=== PATIENT | female | born 1985 | race Caucasian/White ===

== ENCOUNTER → 2019-07-20 11:55 | Outpatient (CLI) | payer OTHER, SELFPAY ==
--- NOTE | ~2019-07-20 | XR_ITS ---
XR chest 2V DATE: 07/20/2019 13:16 INDICATION: Acute lower respiratory infection TECHNIQUE: PA and lateral views COMPARISON: None FINDINGS: Normal heart size. No hilar or mediastinal enlargement. No pulmonary infiltrate or consolid ation, pleural effusion or pulmonary vascular congestion or pneumothorax. IMPRESSION: No active cardiopulmonary disease Reviewed, dictated and finalized at location A.
== END ==
PROVIDERS: PCP Family Medicine; Visit Provider Physician Assistant
DX: J22 Unspecified acute lower respiratory infection (principal)
CPT/HCPCS: 71046

== ENCOUNTER → 2020-06-25 11:22 | Outpatient (CLI) | payer OTHER, SELFPAY ==
--- NOTE | ~2020-06-25 | XR_ITS ---
XR_CERV2-3V_CR DATE: 06/25/2020 11:50 INDICATION: Neck pain. Seropositive rheumatoid arthritis. TECHNIQUE: AP, open-mouth, lateral views COMPARISON: None FINDINGS: There is mild reversal of cervical curvature. There is moderate loss of interspace height at C5-6. C1 and C2 are normally aligned and the odontoid process is intact. No fracture or dislocation or lock ed facet or prevertebral soft tissue swelling. IMPRESSION: Moderate loss of interspace height at C5-6 Mild reversal of cervical curvature Reviewed, dictated and finalized at Location A. Reviewed, dictated and finalized at location B. 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
--- NOTE | ~2020-06-25 | XR_ITS ---
XR shoulder LT min 2V DATE: 06/25/2020 11:50 INDICATION: Left shoulder pain. Seropositive rheumatoid arthritis. TECHNIQUE: 4 views COMPARISON: None FINDINGS: No fracture or dislocation, periosteal reaction or bone destruction. Normal alignment at th e acromioclavicular and glenohumeral joints. No abnormal left shoulder soft tissue calcification. IMPRESSION: Negative left shoulder Reviewed, dictated and finalized at location B. 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
== END ==
DX: M54.2 Cervicalgia (principal); M25.512 Pain in left shoulder; M05.9 Rheumatoid arthritis with rheumatoid factor, unspecified
CPT/HCPCS: 72040; 73030

== ENCOUNTER 2020-11-08 13:03 | Observation (INO) | payer OTHER, SELFPAY ==
--- NOTE | ~2020-11-08 | US_ITS ---
EXAMINATION: US OB BPP wo non-stress DATE: 11/08/2020 14:29 INDICATION: Placental assessment after fall during third trimester TECHNIQUE: Real-time pelvic ultrasound was performed. The interpreting radiologist was not present fo r the study. COMPARISON: None. FINDINGS: There is a single living fetus in vertex presentation. The placenta is anterior and appears normal. F etal heart rate is 142 beats per minute (bpm). Biophysical profile performed by the technologist: breathing (30 sec sustained breathing in 30 minutes): 2 out of 2 movement (3 gross body movements in 30 minutes): 2 out of 2 tone (one episode of raxufmu-oibqiwdsl-zmlglzm limb movement): 2 out of 2 Amniotic fluid pocket (2 cm): 2 out of 2 Total score: 8 out of 8 IMPRESSION: 1. Single living fetus in vertex presentation. 2. Biophysical profile 8 out of 8. 3. Grossly normal placenta without evidence of abruption. However, acute hemorrhage can be isoechoic to the placenta. Recommend continued clinical followup. Reviewed, dictated and finalized at location B. IMPRESSION: 1. Single living fetus in vertex presentation. 2. Biophysical profile 8 out of 8. 3. Grossly normal placenta without evidence of abruption. However, acute hemor rhage can be isoechoic to the placenta. Recommend continued clinical followup.
[2020-11-08 13:33] VITALS: BP 124/73; PULSE 118
[2020-11-08 13:34] VITALS: TEMP 36.6
[2020-11-08 13:36] VITALS: BMI 28.5
--- NOTE | 2020-11-08 13:41 | OBADM ---
This patient, Lila Morel, admitted to the OB room 117 at 1303 for observation after having fallen in the shower this morning. Patient/family oriented to hospital policies and general routines including ID bracelet, bed and alarms, visiting hours, pain management, procedures, bathroom and other care routines, personal items, smoking policy, room service/diet, and visiting hours. Patient/Family are encouraged to report perceived risks to care and to ask questions if they do not understand what they are told or what they should do.
[2020-11-08 14:00] VITALS: BP 137/73; PULSE 112
[2020-11-08 15:00] VITALS: BP 121/65; PULSE 101
[2020-11-08] MEDS: ACETAMINOPHEN 500 MG TABLET 1000 MG PO (15:35)
--- NOTE | 2020-11-08 18:45 | PM.OBTRLD ---
OB - Triage/Final Diagnosis Visit Information Comments/Additional reasons for admission: I have assessed the risk for this patient, Lila Morel, and determined that she would benefit from observation care. Evaluation Vital signs: Vital Signs - 24 hr 11/08/20 13:33 11/08/20 14:00 11/08/20 15:00 Pulse Rate 118 H 112 H 101 H Blood Pressure 124/73 137/73 121/65 Final Diagnosis (1) Fall: Code(s): W19.XXXA - Unspecified fall, initial encounter Status: Acute
== END 2020-11-08 15:54 | disposition home or self-care (01) ==
PROVIDERS: Admitting Provider Obstetrics & Gynecology; Visit Provider Obstetrics & Gynecology
DX: O26.899 Other specified pregnancy related conditions, unspecified trimester (principal); W19.XXXA Unspecified fall, initial encounter; Z3A.00 Weeks of gestation of pregnancy not specified
CPT/HCPCS: 76819; A9270; G0378; G0379

== ENCOUNTER 2020-11-17 14:52 | Outpatient (CLI) | payer OTHER, SELFPAY ==
[2020-11-17 15:15] VITALS: BP 118/66; PULSE 106
[2020-11-17 15:23] VITALS: BP 118/66
[2020-11-17 15:30] VITALS: BP 118/66
--- NOTE | 2020-11-17 15:35 | PC.NURSE ---
1520-Dr.Dalla Barnes called, informed pt came in after calling and asking if she can come in to get her bp checked. BP is 118/66. Pt states she was at [employer] and got hot and a little dizzy. Pt states she started getting a slight headache less than 30 minutes ago and has not taken anything for it yet. Orders received to discharge pt home and instruct to take tylenol for OSCAR. FHR is reassuring for 29 weeks gestation.
== END 2020-11-17 15:30 | disposition home or self-care (01) ==
LOC: ANHOBOP 14:59 → ANHLDR 14:59
PROVIDERS: Visit Provider Obstetrics & Gynecology
DX: O13.9 Gestational [pregnancy-induced] hypertension without significant proteinuria, unspecified trimester (principal); Z3A.00 Weeks of gestation of pregnancy not specified
CPT/HCPCS: 59025; 99199

== ENCOUNTER 2020-12-23 09:55 | Observation (INO) | payer OTHER, SELFPAY ==
[2020-12-23] VITALS (9 sets, daily range): BP systolic 125–147; BP diastolic 62–83; PULSE 69–115
[2020-12-23] MEDS: TERBUTALINE SULFATE 1 MG/ML VIAL 0.25 MG SUB-Q (11:39)
[2020-12-23] MEDS: ONDANSETRON HCL ODT 4 MG TABLET PO (11:55)
[2020-12-23 12:03] LABS: Alanine Aminotransferase 15 U/L (4-35); Alkaline Phosphatase 171 U/L (38-126); Anion Gap 6 mmol/L (8-16); Aspartate Amino Transferase 28 U/L (14-36); Bilirubin,Total 0.2 mg/dL (0.2-1.3); Blood Urea Nitrogen 7 mg/dL (7-17); Calcium 8.9 mg/dL (8.4-10.2); Carbon Dioxide 22 mmol/L (22-30); Chloride 106 mmol/L (98-107); Estimated Glomerular Filt Rate > 60; Glucose 115 mg/dL (65-110); Sodium 134 mmol/L (137-145); Uric Acid 6.3 mg/dL (2.5-7.5)
[2020-12-23 12:11] LABS: Basophils Percent Auto 0.3 % (0.2-1.2); Eosinophils Percent Auto 0.4 % (0-4.4); Hematocrit 34.5 % (37.0-47.0); Hemoglobin 11.6 g/dL (12.0-15.0); Immature Granulocyte Absolute 0.07 K/mm3 (0.00-0.031); Immature Granulocyte Percent A 0.7 % (0-0.5); Lymphocytes Absolute Auto 1.02 K/mm3 (0.9-3.2); Mean Corpuscular HGB Conc 33.6 g/dl (32-36); Mean Corpuscular Hemoglobin 29.1 pg (26-34); Mean Corpuscular Volume 86.7 fl (80-100); Mean Platelet Volume 10.5 fl (7.4-10.4); Monocytes Absolute Auto 0.3 K/mm3 (0.1-0.6); Neutrophils Absolute Auto 8.8 K/mm3 (1.3-6.7); Neutrophils Percent Auto 85.6 % (45.5-73.1); Platelet Count Result 239 k/mm3 (150-375); Red Blood Count 3.98 M/mm3 (4.2-5.4); Red Cell Distribution Width 12.5 % (11.5-14.5); White Blood Count 10.3 K/mm3 (4.5-10.0)
[2020-12-23 12:19] LABS: Creatinine Urine 146.8 mg/dL; Total Protein Urine Random 19 mg/dL; Ur Ttl Prot Creatinine Ratio 0.13 mg/mg (0-0.20)
[2020-12-23 12:40] LABS: Add Urine Microscopic? YES; Appearance Urine Cloudy (Clear); Bilirubin Urine Negative (Negative); Blood Urine Negative (Negative); Color Urine Amber (Yellow); Glucose Urine UA Negative (Negative); Ketones Urine Negative (Negative); Leukocyte Esterase Ur Negative LEU/UL (Negative); Mucus Urine Rare /lpf; Nitrate Urine Negative (Negative); Protein Urine 1+ mg/dL (Negative); RBC Urine 0-2 /hpf (0-2); Squamous Epithelial Cell Urine Many /hpf (Few); WBC Urine 0-3 /hpf
[2020-12-23 12:42] LABS: Specific Grav Ur 1.033 (1.001-1.035)
[2020-12-23] MEDS: LACTATED RINGERS 1,000 ML 999 ML IV CONT (13:03)
--- NOTE | 2020-12-23 13:42 | PC.NURSE ---
Pt dozing in the room, did not wake when RN entered room. Has been tolerating water and asked for crackers. Pt previously stated she was still nauseated but at least able to keep the water down.
--- NOTE | 2020-12-26 07:31 | PM.OBTRLD ---
OB - Triage/Final Diagnosis Visit Information Date of evaluation: 12/23/20 Reason for evaluation: decreased movement Comments/Additional reasons for admission: I have assessed the risk for this patient, Lila Morel, and determined that she would benefit from observation care. Evaluation Laboratory results: Laboratory Tests 12/23/20 12/23/20 12/23/20 11:40 11:40 11:40 WBC 10.3 H RBC 3.98 L Hgb 11.6 L Hct 34.5 L MCV 86.7 MCH 29.1 MCHC 33.6 RDW 12.5 Plt Count 239 MPV 10.5 H Immature Gran % (Auto) 0.7 H Neut % (Auto) 85.6 H Lymph % (Auto) 10.0 L [place] % (Auto) 3.0 Eos % (Auto) 0.4 Baso % (Auto) 0.3 Lymph # (Auto) 1.02 [place] # (Auto) 0.3 Eos # (Auto) 0.0 Baso # (Auto) 0.0 Abs Immat Gran (auto) 0.07 H Absolute Neuts (auto) 8.8 H Absolute Nucleated RBC 0.0 Nucleated RBC % 0.0 Sodium 134 L Potassium 4.0 Chloride 106 Carbon Dioxide 22 Anion Gap 6 L BUN 7 Creatinine 0.50 L Estim Creat Clear Calc Not Reportable Estimated GFR > 60 Glucose 115 H Uric Acid 6.3 Calcium 8.9 Total Bilirubin 0.2 AST 28 ALT 15 Alkaline Phosphatase 171 H Total Protein 7.0 Albumin 4.0 Urine Color [place] Urine Appearance Cloudy H Urine pH 5.0 Ur Specific [place] 1.033 Urine Protein 1+ H Urine Glucose (UA) Negative Urine Ketones Negative Ur Blood (Man) Negative Urine Nitrate Negative Urine Bilirubin Negative Urine Urobilinogen 2.0 H Leukocyte Esterase Rfl Negative Urine RBC 0-2 Urine WBC 0-3 Ur Squamous Epith Cells Many H Urine Mucus Rare U Random Total Protein Urine Creatinine Protein/Creat Ratio 2 12/23/20 11:56 WBC RBC Hgb Hct MCV MCH MCHC RDW Plt Count MPV Immature Gran % (Auto) Neut % (Auto) Lymph % (Auto) [place] % (Auto) Eos % (Auto) Baso % (Auto) Lymph # (Auto) [place] # (Auto) Eos # (Auto) Baso # (Auto) Abs Immat Gran (auto) Absolute Neuts (auto) Absolute Nucleated RBC Nucleated RBC % Sodium Potassium Chloride Carbon Dioxide Anion Gap BUN Creatinine Estim Creat Clear Calc Estimated GFR Glucose Uric Acid Calcium Total Bilirubin AST ALT Alkaline Phosphatase Total Protein Albumin Urine Color Urine Appearance Urine pH Ur Specific [place] Urine Protein Urine Glucose (UA) Urine Ketones Ur Blood (Man) Urine Nitrate Urine Bilirubin Urine Urobilinogen Leukocyte Esterase Rfl Urine RBC Urine WBC Ur Squamous Epith Cells Urine Mucus U Random Total Protein 19 Urine Creatinine 146.8 Protein/Creat Ratio 2 0.13
== END 2020-12-23 14:10 | disposition home or self-care (01) ==
PROVIDERS: Admitting Provider Student in an Organized Health Care Education/Training Program; Visit Provider Student in an Organized Health Care Education/Training Program
DX: O36.8190 Decreased fetal movements, unspecified trimester, not applicable or unspecified (principal); Z3A.00 Weeks of gestation of pregnancy not specified
CPT/HCPCS: 36415; 80053; 81001; 82570; 84156; 84550; 85025; 96372; A9270; G0378; G0379; J3105; J7120

== ENCOUNTER 2021-01-23 16:21 | Outpatient (CLI) | payer OTHER, SELFPAY ==
[2021-01-23 16:54] LABS: Mean Corpuscular HGB Conc 32.4 g/dl (32-36); Mean Corpuscular Hemoglobin 28.1 pg (26-34); Mean Corpuscular Volume 86.7 fl (80-100); Mean Platelet Volume 11.2 fl (7.4-10.4); Platelet Count Result 239 k/mm3 (150-375); Red Blood Count 3.92 M/mm3 (4.2-5.4); Red Cell Distribution Width 12.9 % (11.5-14.5); White Blood Count 12.2 K/mm3 (4.5-10.0)
[2021-01-25 08:52] LABS: Rapid Plasma Reagin Non-Reactive (NonReactive)
== END 2021-01-23 16:22 | disposition home or self-care (01) ==
LOC: ANHLAB 16:27
PROVIDERS: Visit Provider Obstetrics & Gynecology
DX: Z34.93 Encounter for supervision of normal pregnancy, unspecified, third trimester (principal); Z3A.00 Weeks of gestation of pregnancy not specified
CPT/HCPCS: 36415; 85027; 86592; 86850; 86900; 86901

== ENCOUNTER 2021-01-24 10:25 | Inpatient (IN) | payer OTHER, SELFPAY ==
--- NOTE | 2020-12-31 16:12 | PC.NURSE ---
VERIFIED WITH OR SCHEDULE AND PATIENT--C/S WITH TUBAL LIGATION ON 01/24/21 AT 1200 PATIENT GIVEN REQUISITION FOR LAB DRAW ON 01/23/21
[2021-01-23 14:15] VITALS: BP 118/76; PULSE 70; RESP 18; O2SAT 100
[2021-01-24] VITALS (40 sets, daily range): BP systolic 109–146; BP diastolic 62–94; PULSE 65–92; RESP 16–20; TEMP 36.2–36.8; O2SAT 96–100; BMI 30.1
--- NOTE | 2021-01-24 10:25 | LDADM ---
This patient, Lila Morel, was admitted to Labor/Delivery/Recovery 119 on 01/24/21 at 10:25. Plans for labor, pain management and were discussed with patient. Patient/family oriented to hospital policies and general routines including ID bracelet, bed and alarms, visiting hours, pain management, procedures, bathroom and other care routines, personal items, smoking policy, room service/diet and guest tray routines, security routines, and visiting hours. Patient/Family are encouraged to report perceived risks to care and to ask questions if they do not understand what they are told or what they should do. See OBIX for further documentation.
--- NOTE | 2021-01-24 10:51 | WPDANESEPPF ---
Anes - Initial Pre Proc Eval Procedure: Operation Date: 01/24/21 12:00 Proposed Procedures p Repeat Section with Bilateral Tubal Sterilization - Demond Bui MD Date/Time: 01/24/21 10:51 Surgeon: Demond Bui MD Pre Op Diagnosis: c section Patient Data Age: 35 Gender: F Height: Weight: Last Vital Signs Pulse 89 01/24/21 10:47 BP 140/94 H 01/24/21 10:47 Allergies Allergy/AdvReac Type Severity Reaction Status Date / Time No Known Allergies Allergy Unknown Verified 04/11/19 08:26 Home Medications Medication Instructions Recorded Confirmed Type prenat.vits,donna,dfw-ddan-qzoan 1 tablet PO DAILY 04/11/19 11/08/20 History acetaminophen 1,500 mg PO USEASDIRECTD 11/08/20 11/08/20 History diphenhydramine HCl [Benadryl] 50 mg PO HS 11/08/20 11/08/20 History famotidine [Zantac-360 20 mg USEASDIRECTD 12/31/20 12/31/20 History (famotidine)] omeprazole 20 mg PO DAILY 12/31/20 12/31/20 History ondansetron HCl 4 mg PO Q6H PRN 12/31/20 12/31/20 History Patient hx anesthesia problems: none Family hx anesthesia problems: none PMFSH Past Medical History Medical History (Updated 01/24/21 @ 10:52 by Woody Linda DO) Anxiety Post depression Rheumatoid arthritis Surgical History Surgical History (Updated 04/11/19 @ 09:18 by Srini Jones MD) History of 2016 and 2017 History of tonsillectomy and adenoidectomy History of wisdom tooth extraction 2017 Family History Family History (Updated 12/31/20 @ 16:03 by Jayro Vaca RN) Mother Depression Hypertension Sibling Depression Father Family history of lung cancer Depression Grandparent Family history of coronary artery disease Family history of malignant neoplasm of brain Family history of cardiovascular disease Social History Social History Smoking status: Never smoker Second hand tobacco smoke exposure: No Alcohol intake: current Substance use: never Spiritual care concerns: No Anes - Eval Final PreProcedure Day of Procedure 01/24/21 10:51 Patient weight: overweight Heart: regular rate and rhythm Lungs: clear to auscultation and normal air movement Airway: Mallampati scale class II Neurological: alert and oriented Last oral intake: >/= 8 hours ASA classification: II Emergent: no Anesthetic plan: proceed Anesthesia type and monitoring: regional spinal and standard monitoring Informed Consent: The patient's anesthetic plan and its attendant risks and benefits were discussed with the patient/family/POA. Questions were solicited and answers provided to the satisfaction of the patient/family/POA.
[2021-01-24] MEDS: LACTATED RINGERS 1,000 ML 999 ML IV CONT ×2 (11:02→12:08)
--- NOTE | 2021-01-24 11:59 | PM.IMHP ---
H&P: HPI History of Present Illness Date/Time: 01/24/21 11:59 35 y/o at 39 1/7 weeks here for repeat . Prior x 3. Desires permanent contraception with tubal ligation. Chief Complaint: Here for c section Review of Systems Review of Systems: All systems reviewed & are unremarkable except as noted in HPI and below PMFSH Past Medical History Medical History Anxiety Post depression Rheumatoid arthritis Surgical History Surgical History History of 2017 and 2018 History of tonsillectomy and adenoidectomy History of wisdom tooth extraction 2017 Family History Family History Mother Depression Hypertension Sibling Depression Father Family history of lung cancer Depression Grandparent Family history of coronary artery disease Family history of malignant neoplasm of brain Family history of cardiovascular disease Social History Social History Smoking status: Never smoker Second hand tobacco smoke exposure: No Alcohol intake: current Substance use: never Spiritual care concerns: No Meds Home Medications and Allergies Home Medications Medication Instructions Recorded Confirmed Type prenat.vits,donna,njj-mnlm-mgvwm 1 tablet PO DAILY 04/11/19 01/24/21 History acetaminophen 1,500 mg PO USEASDIRECTD 11/08/20 01/24/21 History diphenhydramine HCl [Benadryl] 50 mg PO HS 11/08/20 01/24/21 History famotidine [Zantac-360 20 mg USEASDIRECTD 12/31/20 01/24/21 History (famotidine)] omeprazole 20 mg PO DAILY 12/31/20 01/24/21 History ondansetron HCl 4 mg PO Q6H PRN 12/31/20 01/24/21 History Allergies Allergy/AdvReac Type Severity Reaction Status Date / Time No Known Allergies Allergy Unknown Verified 04/11/19 08:26 Vital Signs Vital Signs - 24 hr 01/24/21 10:47 Temperature 36.8 C Pulse Rate 89 Respiratory Rate 20 Blood Pressure 140/94 H Exam Const: Orientation/consciousness: patient oriented x3 Other: Well-developed, well-nourished female in no acute distress. Neck: Thyroid: thyroid normal Lymphatic: no lymphadenopathy noted (in neck, axilla or inguinal nodes) Resp: Effort & Inspection: normal respiratory effort Auscultation: clear to auscultation bilaterally Cardio: Rate: regular rate Rhythm: regular rhythm Heart sounds: S1 normal heart sound present and S2 normal heart sound present GI: Other: ABD: Soft, nontender, nondistended, gravid. Vertex. NST reactive. TOCO: no contractions. FH 38 cm. : General: Yes no CVA tenderness Other: Cervix closed / 50 Back/Spine/Pelvis: Back: no CVA tenderness Skin: General skin exam: normal color and no rashes or lesions noted Neuro: General: patient oriented x3 Extrem: Other: Extremities: nontender with no edema Psych: Mental Status: mental status grossly normal Affect: normal affect Assessment and Plan Assessment and plan (1) History of 3 sections: Code(s): Z98.891 - History of uterine scar from previous surgery Status: Acute Assessment and Plan: A: IUP at 39 1/7 weeks with prior cesareans x 3, desiring repeat. Desires permanent contraception. She understands there are temporary methods of contraception available to her. She understands that there are nonsurgical options as well as surgical options. She understands that tubal ligation will render her permanently sterile. She understands that there is a failure rate associated with tubal ligation, as well as an inherent ectopic gestation risk. Furthermore, she understands risks of surgery to include risks of anesthesia, risks of pain, infection, bleeding, blood products, thromboembolic phenomena and damage to adjacent structures such as bowel, bladder, ureters, blood vessels and nerves.
--- NOTE | 2021-01-24 12:00 | WPDHPUPDATE1 ---
History and Physical Update Update Date/Time: 01/24/21 12:00 History and Physical has been reviewed, including an updated exam of the patient. There are NO changes in the patient's condition. Risks, benefits, and alternatives have been discussed and questions answered. Patient agrees to proceed with procedure.
[2021-01-24] MEDS: ceFAZolin 2 GM/D5W 50 ML 2 GM/50 ML BAG IVPB (12:13)
--- NOTE | 2021-01-24 13:24 | PM.OBPRVD ---
OB - Delivery Note Procedure Delivery date: 01/24/21 Procedure: Procedures Operation Date: 01/24/21 12:00 <No data on this case meets the specified criteria> Repeat low transverse delivery Bilateral tubal ligation via modified [place] technique Delivery monitor: external FHT and external uterine Route of delivery: (LTCS) Specimen: Yes (cord blood, segments of bilateral Fallopian tubes) Quantitative Blood Loss (ml): 705 Anesthesia type: Spinal Disposition: PACU Complications: None Narrative: The patient was taken to the operating room where she was prepared and draped in the usual sterile fashion in dorsal supine position with a leftward tilt. She received cefazolin preoperatively. Spinal anesthesia was found to be adequate. A Pfannenstiel skin incision was made along the previous scar line and was carried through to the underlying layer of the fascia. The fascia was incised in the midline and the incision was extended laterally. The fascia was dissected free of the underlying rectus muscles. The rectus muscles were in the midline. The peritoneum was identified, tented up and entered sharply. The peritoneal incision was extended superiorly and inferiorly with good visualization of the bladder. The bladder blade was placed. The vesicouterine peritoneum was identified, tented up and entered sharply. The incision was extended laterally and the bladder flap was developed. The bladder blade was replaced. The uterus was then incised sharply in a transverse fashion along the lower uterine segment. The incision was extended laterally. The infant's head was delivered atraumatically to the sterile field, followed by the body. The nose and mouth were bulb suctioned. After a delay, the cord was clamped and cut. The was handed off the field. Cord blood was collected. The placenta was removed manually and was passed off the field. The uterus was exteriorized and cleared of all clots and debris. The uterine incision was reapproximated using 0 Monocryl in a running, locked fashion. A second, imbricating layer of the same suture was run. Excellent hemostasis resulted as did excellent reapproximation of the normal anatomy. The left fallopian tube was then identified by following it out to the fimbriated end. It was grasped in the midportion with a [place] clamp and a loop of tube was ligated with a free tie of 0 plain gut. The tubal segment was then transected and the specimen was passed off to be sent to pathology. Hemostasis was excellent. Attention was turned to the right fallopian tube which was similarly identified, ligated and transected. Once again, excellent hemostasis resulted. The uterus was returned the abdomen. The pelvis was irrigated copiously with warmed normal saline. Rigorous hemostasis was assured. The fascial layer was reapproximated using 0 Vicryl in a running fashion. The skin was closed with a running, subcuticular stitch of 4 0 Vicryl. Dermaflex was applied externally. Sponge, lap, needle and instrument counts were correct. The patient was taken to the recovery room in stable condition. The went to the nursery in stable condition. I was present and scrubbed the entire procedure. [place] Baby Date of : 01/24/21 Time of : 13:26 Weeks of gestation at delivery: 39 Infant gender: Female Weight (pounds): 7 Weight (ounces): 8 presentation: vertex Placenta delivery description: Manual Removal and Normal Configuration cord vessel description: 3 Vessels, Nuchal Cord and Delayed Cord Clamping score one minute: 7 score five minutes: 8
[2021-01-24] MEDS: OXYTOCIN 30 UNITS/NS 500 ML 30 UNITS/500 ML BAG 125 UNITS IV CONT (13:49)
--- NOTE | 2021-01-24 15:10 | SUR.PHASEI ---
Report called to [facility] RN. Pt going to room 291 for pp care once recovery completed.
[2021-01-24] MEDS: diphenhydrAMINE HCl INJ 50 MG/ML VIAL 25 MG IV PUSH ×2 (15:34→18:53)
[2021-01-24] MEDS: fentaNYL CITRATE INJ (*CRX) 100 MCG/2 ML VIAL 25 MCG IV PUSH (15:45)
--- NOTE | 2021-01-24 15:50 | SUR.PHASEI ---
Pt moved to pp floor at this time via stretcher, belongings and infant with pt.
--- NOTE | 2021-01-24 17:10 | PC.NURSE ---
1552 Pt admitted to room 291 per stretcher from labor and delivery after repeat delivery of viable female at [address] Bui. Mother is a and is choosing to breast feed infant. and FOB present. Couple oriented to room, staffing and procedures. Admission folder reviewed. Pt's VSS and assessment WNL.
[2021-01-24] MEDS: oxyCODONE/ACETAMINOPHEN (*CRX) 5-325 MG TABLET 2 TABLET PO (18:35)
[2021-01-24] MEDS: DEXTROSE 5%/0.45% SOD CHL 1,000 ML 125 ML IV CONT (18:38)
[2021-01-25] VITALS: PULSE 98; RESP 18; O2SAT 99
[2021-01-25] MEDS: oxyCODONE/ACETAMINOPHEN (*CRX) 5-325 MG TABLET 2 TABLET PO ×6 (00:06→21:00)
[2021-01-25] MEDS: IBUPROFEN 600 MG TABLET PO ×3 (00:41→18:49)
[2021-01-25 04:12] VITALS: PULSE 86; RESP 18; O2SAT 96
[2021-01-25 05:13] LABS: Basophils Percent Auto 0.1 % (0.2-1.2); Eosinophils Absolute Auto 0.1 K/mm3 (0-0.3); Eosinophils Percent Auto 0.5 % (0-4.4); Hematocrit 26.9 % (37.0-47.0); Hemoglobin 8.8 g/dL (12.0-15.0); Immature Granulocyte Absolute 0.08 K/mm3 (0.00-0.031); Immature Granulocyte Percent A 0.6 % (0-0.5); Lymphocytes Absolute Auto 1.37 K/mm3 (0.9-3.2); Lymphocytes Percent Auto 10.1 % (18.3-44.2); Mean Corpuscular HGB Conc 32.7 g/dl (32-36); Mean Corpuscular Hemoglobin 28.4 pg (26-34); Mean Corpuscular Volume 86.8 fl (80-100); Mean Platelet Volume 11.6 fl (7.4-10.4); Monocytes Absolute Auto 0.6 K/mm3 (0.1-0.6); Monocytes Percent Auto 4.7 % (2.6-8.5); Neutrophils Absolute Auto 11.4 K/mm3 (1.3-6.7); Platelet Count Result 176 k/mm3 (150-375); Red Cell Distribution Width 12.9 % (11.5-14.5); White Blood Count 13.5 K/mm3 (4.5-10.0)
[2021-01-25 07:35] VITALS: BP 132/67; PULSE 91; RESP 16; TEMP 36.7; O2SAT 98
[2021-01-25] MEDS: SIMETHICONE 80 MG TAB.CHEW PO (08:38)
--- NOTE | 2021-01-25 08:45 | PC.NURSE ---
Consult with pt., mother wishes to pump due to ineffective feeding. Mother has had to supplement a few time during the night. Instructions given on breast pump care and usage, pumping schedule, nipple care, and collection and storage of breast milk. Encouraged [id number], breast massage and manual expression to stimulate supply. Pumping log provided and reviewed. Assessed patient for correct flange size, placement and draw. Patient verbalizes and demonstrates understanding of instructions.
[2021-01-25] MEDS: DOCUSATE SODIUM 100 MG CAPSULE PO ×2 (09:17→17:01)
[2021-01-25] MEDS: POLYSACCHARIDE IRON COMPLEX 150 MG CAPSULE PO ×2 (09:17→17:01)
--- NOTE | 2021-01-25 09:45 | PC.NURSE ---
Mother called out for assist with feeding. Reviewed feeding cues, frequencies, duration of feedings, feeding elimination flow sheet, and signs of adequate intake. Demonstrated stimulation techniques to wake infant for feeding. Assisted with infant to breast. Reviewed positioning/alignment in cross cradle, holding breast in U hold and guided asymmetrical latch on. Mother reports she is in pain and does not want to continue to breastfeed. Infant was bottle fed.
[2021-01-25 11:46] VITALS: BP 137/88; PULSE 101; RESP 16; TEMP 36.8; O2SAT 99
--- NOTE | 2021-01-25 13:05 | PC.NURSE ---
Mother called out for assist with feeding, reporting has used a nipple shield most feedings and has difficulties keeping latched. Infant is able to freely thrust tongue past gum ridge and flange both lips. Skin is intact on both nipples, no redness and bruising noted. Reviewed feeding cues, frequencies, duration of feedings, feeding elimination flow sheet, and signs of adequate intake. Demonstrated stimulation techniques to wake infant for feeding. Assisted with to breast. Reviewed positioning/alignment in cross cradle, holding breast in ?U? hold and guided asymmetrical latch on. Reviewed rational for each. Several attempts before infant able to latch correctly without shield. Infant nursed eagerly with steady draws and occasional swallowing noted for bursts followed with pausing. Reviewed signs of a correct latch, effective nursing and suck swallow ratio. Suggested mother stimulate while feeding to increase stimulate, increase intake and to assist with maintaining deep latch. would slip to shallow latch causing tenderness. Demonstrated how to adjust latch more deeply while feeding if needed. Mother reports she can feel the difference in latch with no/less tenderness. Nipple care reviewed of lanolin after feedings, warm compresses as needed. Mother wishes to supplement after feedings until is more consistently nursing. Instructed mother to call out for RN assistance if she is unable to latch for feeding or she has discomfort with nursing. Instructed feeding should be initiated three hours from start of last feeding or if feeding cues are noted before. Mother voiced understanding of information shared.
--- NOTE | 2021-01-25 13:22 | P.PNOB_ITS ---
OB - PN: Subj Subjective Date/time seen: 01/25/21 13:22 Narrative: Pain OK. Tolerating diet. OB - PN: Obj Data Labs CBC & Chem 7: 01/25/21 04:20 Labs: Laboratory Results - last 24 hr 01/25/21 04:20 WBC 13.5 H RBC 3.10 L Hgb 8.8 L Hct 26.9 L MCV 86.8 MCH 28.4 MCHC 32.7 RDW 12.9 Plt Count 176 MPV 11.6 H Immature Gran % (Auto) 0.6 H Neut % (Auto) 84.0 H Lymph % (Auto) 10.1 L [place] % (Auto) 4.7 Eos % (Auto) 0.5 Baso % (Auto) 0.1 L Lymph # (Auto) 1.37 [place] # (Auto) 0.6 Eos # (Auto) 0.1 Baso # (Auto) 0.0 Abs Immat Gran (auto) 0.08 H Absolute Neuts (auto) 11.4 H Absolute Nucleated RBC 0.0 Nucleated RBC % 0.0 OB - PN A/P Plan Comments: A: POD#1, doing well. P: Routine care. Exam Narrative: AVSS I/O OK ABD soft, nontender, fundus firm. Incision c/d/i. EXT nontender
--- NOTE | 2021-01-25 16:57 | P.PNAN_ITS ---
Anes - Prog Note Post-Op Date/Time: 01/25/21 16:57 Cardiovascular status: normal Respiratory status: normal Airway patency: baseline Mental status: baseline Post-Op hydration status: normal Vital Signs: Last Vital Signs Temp 36.8 C 01/25/21 11:46 Pulse 101 H 01/25/21 11:46 Resp 16 01/25/21 11:46 BP 137/88 01/25/21 11:46 Pulse Ox 99 01/25/21 11:46 Pain Score (VAS): 2 I/O: Intake & Output 01/25/21 01/25/21 01/25/21 07:59 15:59 23:59 Intake Total 950 Output Total 1425 600 Balance -475 -600 Laboratory Tests 01/25/21 04:20 01/25/21 04:20 WBC 13.5 H RBC 3.10 L Hgb 8.8 L Hct 26.9 L MCV 86.8 MCH 28.4 MCHC 32.7 RDW 12.9 Plt Count 176 MPV 11.6 H Immature Gran % (Auto) 0.6 H Neut % (Auto) 84.0 H Lymph % (Auto) 10.1 L [place] % (Auto) 4.7 Eos % (Auto) 0.5 Baso % (Auto) 0.1 L Lymph # (Auto) 1.37 [place] # (Auto) 0.6 Eos # (Auto) 0.1 Baso # (Auto) 0.0 Abs Immat Gran (auto) 0.08 H Absolute Neuts (auto) 11.4 H Absolute Nucleated RBC 0.0 Nucleated RBC % 0.0 Post-procedural complaints: none Patient Feedback: Patient satisfied with anesthetic care.
[2021-01-25 19:00] VITALS: BP 148/81; PULSE 106; RESP 20; TEMP 36.8
[2021-01-25] MEDS: ESCITALOPRAM OXALATE 10 MG TABLET PO (20:59)
[2021-01-25] MEDS: LANOLIN (LANSINOH) 7.5 GM CREAM 1 APPLIC TOPICAL (21:03)
[2021-01-26] MEDS: IBUPROFEN 600 MG TABLET PO ×4 (00:33→21:23)
[2021-01-26] MEDS: oxyCODONE/ACETAMINOPHEN (*CRX) 5-325 MG TABLET 2 TABLET PO ×4 (03:13→23:00)
[2021-01-26] MEDS: POLYSACCHARIDE IRON COMPLEX 150 MG CAPSULE PO ×2 (07:10→21:23)
[2021-01-26] MEDS: DOCUSATE SODIUM 100 MG CAPSULE PO ×2 (07:10→21:23)
[2021-01-26 07:15] VITALS: BP 136/90; PULSE 101; RESP 20; TEMP 36.5
--- NOTE | 2021-01-26 10:21 | PM.OBPNVD ---
OB - PN: Subj Subjective Date/time seen: 01/26/21 10:21 Narrative: Pain OK. Tolerating diet. OB - PN: Obj Data Labs CBC & Chem 7: 01/25/21 04:20 OB - PN A/P Plan Comments: A: POD#2, doing well. P: Routine care. Exam Narrative: AVSS I/O OK ABD soft, nontender, fundus firm. Incision c/d/i. EXT nontender
[2021-01-26] MEDS: LORATADINE 10 MG TABLET PO (12:07)
[2021-01-26 18:30] VITALS: BP 144/88; PULSE 96; RESP 18; TEMP 36.7
[2021-01-26] MEDS: oxyCODONE/ACETAMINOPHEN (*CRX) 5-325 MG TABLET 1 TABLET PO (19:03)
[2021-01-26] MEDS: ESCITALOPRAM OXALATE 10 MG TABLET PO (21:23)
[2021-01-27] MEDS: IBUPROFEN 600 MG TABLET PO ×2 (05:02→11:48)
[2021-01-27 07:30] VITALS: BP 154/88; PULSE 85; RESP 20; TEMP 36.8
[2021-01-27] MEDS: oxyCODONE/ACETAMINOPHEN (*CRX) 5-325 MG TABLET 1 TABLET PO (07:34)
[2021-01-27] MEDS: DOCUSATE SODIUM 100 MG CAPSULE PO (07:35)
[2021-01-27] MEDS: POLYSACCHARIDE IRON COMPLEX 150 MG CAPSULE PO (07:35)
[2021-01-27 08:45] VITALS: BP 150/84
--- NOTE | 2021-01-27 09:14 | PM.OBPNVD ---
OB - PN: Subj Subjective Date/time seen: 01/27/21 09:14 Narrative: Pain OK. Tolerating diet. Pubic symphysis pain. Would like physical therapy as outpatient. Would like to go home. OB - PN: Obj Data Labs CBC & Chem 7: 01/25/21 04:20 OB - PN A/P Plan Comments: A: POD#3, doing well. P: Home. Plan outpatient PT. Check bp at f/u in 1-2 days. Exam Narrative: AVSS (bp 130-150/80) ABD soft, nontender, fundus firm. Incision c/d/i. EXT nontender
--- NOTE | 2021-01-27 09:17 | P.DS_ITS ---
DS: Admitting Diagnosis Discharge Date 01/27/21 Admitting Diagnosis IUP at term Prior delivery, desires repeat Desired sterility DS: Discharge Diagnosis Discharge Diagnosis (1) Unwanted fertility: Code(s): Z30.09 - Encounter for other general counseling and advice on contraception Status: Acute (2) Term : Code(s): Z34.90 - Encounter for supervision of normal , unspecified, unspecified trimester Status: Acute (3) History of 3 sections: Code(s): Z98.891 - History of uterine scar from previous surgery Status: Acute OB - DS: Summary OB Procedures : None OB Procedures Intrapartum: and Tubal ligation OB Procedures: : None Peripartum Data Procedures: Procedures Operation Date: 01/24/21 12:00 Actual Procedure Side Surgeon p Section Demond Bui MD Repeat delivery with concurrent bilateral tubal ligation DS: Data Data Completed and Pending Completed studies during hospitalization: Pending at discharge 01/24/21 13:53 Surgical [PTH] Routine Discharge Plan Discharge Attending physician on discharge: Demond Bui Discharging Clinician: Demond Bui Patient Disposition: Home, Self-Care Activity: may shower, may drive after 2 weeks and pelvic rest Diet: regular Wound Care Instructions: incision open to air Discharge Instructions: Call or return if temperature above 100.4? F, increased abdominal pain, increased vaginal bleeding or any new problems. Stand Alone Forms: General Discharge Information Follow-up/Referrals: Demond Bui MD [Physician] - 4 Weeks Discharge Medications: New ibuprofen 600 mg tablet 600 mg PO Q6H PRN (Reason: cramps) Qty: 30 RF: 0 ferrous sulfate 325 mg (65 mg iron) tablet 325 mg PO DAILY Qty: 30 RF: 0 oxycodone-acetaminophen [Percocet] 5-325 mg tablet 1 - 2 tablet PO Q6H PRN (Reason: pain) Qty: 30 RF: 0 Continued prenat.vits,donna,edx-rwwa-ijweo Tablet 1 tablet PO DAILY RF: 0 omeprazole 20 mg Capsule,Delayed Release(Dr/Ec) 20 mg PO DAILY RF: 0 Discontinued diphenhydramine HCl [Benadryl] 25 mg Capsule 50 mg PO HS RF: 0 acetaminophen 500 mg Capsule 1,500 mg PO USEASDIRECTD RF: 0 ondansetron HCl 4 mg Tablet 4 mg PO Q6H PRN (Reason: Nausea And Vomiting) RF: 0 famotidine [Zantac-360 (famotidine)] 20 mg Tablet 20 mg USEASDIRECTD RF: 0 Date of admission: 01/24/21 10:25 Primary Care Provider: PHYSICIAN,LEAD CLINICAL RESEARCH COORDINATOR Admitting Provider: Demond Bui Attending physician on admission: Demond Bui Condition: Stable
[2021-01-30 09:56] VITALS: BP 142/88; PULSE 83; RESP 20; TEMP 36.8; O2SAT 99
== END 2021-01-27 13:48 | disposition home or self-care (01) | DRG 785 ==
LOC: ANHLDR 10:28 → ANHOB2 16:15
PROVIDERS: Admitting Provider Obstetrics & Gynecology; Visit Provider Obstetrics & Gynecology
PROC: 10D00Z1 Extraction of Products of Conception, Low, Open Approach (ICD-10-PCS; CPT 59514; principal; 2021-01-24 12:00)
DX: O34.211 Maternal care for low transverse scar from previous cesarean delivery (principal); Z37.0 Single live birth; Z3A.39 39 weeks gestation of pregnancy; O99.892 Other specified diseases and conditions complicating childbirth; M06.9 Rheumatoid arthritis, unspecified; O99.344 Other mental disorders complicating childbirth; F41.9 Anxiety disorder, unspecified; Z30.2 Encounter for sterilization
CPT/HCPCS: 36415; 85025; 85027; 86592; 86850; 86900; 86901; 88302; A9270; J0131; J0690; J1200; J1885; J2274; J2300; J2370; J2405; J2590; J3010; J3480; J7120

== ENCOUNTER 2021-01-30 21:00 | Observation (INO) | payer OTHER, SELFPAY ==
[2021-01-30] VITALS (25 sets, daily range): BP systolic 145–164; BP diastolic 70–92; PULSE 78–101; TEMP 36.6–37.3; BMI 28.2
[2021-01-30 11:24] LABS: Basophils Absolute Auto 0.1 K/mm3 (0.0-0.1); Basophils Percent Auto 0.7 % (0.2-1.2); Eosinophils Absolute Auto 0.2 K/mm3 (0-0.3); Eosinophils Percent Auto 1.9 % (0-4.4); Hematocrit 29.3 % (37.0-47.0); Hemoglobin 9.3 g/dL (12.0-15.0); Immature Granulocyte Absolute 0.35 K/mm3 (0.00-0.031); Immature Granulocyte Percent A 4.2 % (0-0.5); Lymphocytes Absolute Auto 1.22 K/mm3 (0.9-3.2); Lymphocytes Percent Auto 14.7 % (18.3-44.2); Mean Corpuscular HGB Conc 31.7 g/dl (32-36); Mean Corpuscular Volume 88.3 fl (80-100); Mean Platelet Volume 9.3 fl (7.4-10.4); Monocytes Absolute Auto 0.5 K/mm3 (0.1-0.6); Monocytes Percent Auto 6.5 % (2.6-8.5); Platelet Count Result 292 k/mm3 (150-375); Red Blood Count 3.32 M/mm3 (4.2-5.4); Red Cell Distribution Width 12.6 % (11.5-14.5); White Blood Count 8.3 K/mm3 (4.5-10.0)
[2021-01-30 11:41] LABS: Alanine Aminotransferase 20 U/L (4-35); Alkaline Phosphatase 126 U/L (38-126); Anion Gap 9 mmol/L (8-16); Aspartate Amino Transferase 33 U/L (14-36); Bilirubin,Total 0.2 mg/dL (0.2-1.3); Blood Urea Nitrogen 11 mg/dL (7-17); Calcium 8.6 mg/dL (8.4-10.2); Carbon Dioxide 25 mmol/L (22-30); Chloride 106 mmol/L (98-107); Estimated Glomerular Filt Rate > 60; Glucose 107 mg/dL (65-110); Potassium 3.8 mmol/L (3.4-5.0); Sodium 140 mmol/L (137-145); Uric Acid 7.5 mg/dL (2.5-7.5)
--- NOTE | 2021-01-30 12:56 | PC.NURSE ---
Dr. Bui on unit and informed of worsening headache, incisional pain, lab results, and reviewed BP's. Orders received.
[2021-01-30] MEDS: IBUPROFEN 600 MG TABLET PO ×2 (13:51→23:00)
--- NOTE | 2021-01-30 15:08 | PC.NURSE ---
Pt breastfed infant earlier using nipple shield, and just finished pumping and bottle feeding infant. Extra breast milk to refrigerator.
--- NOTE | 2021-01-30 16:15 | PC.NURSE ---
Pt, , and are sleeping.
--- NOTE | 2021-01-30 17:10 | PC.NURSE ---
Pt, , and still sleeping.
--- NOTE | 2021-01-30 17:56 | PC.NURSE ---
Dr. Bui called to check on pt. Discussed BP's of 160-164/82-83 when pt was in pain before Fioricet and when was crying in room. Pain down to a 4 out of 10 an hour after Fioricet was given and BP 149/80. Pt slept for 2 hrs and headache and incisional pain down to a 2. Current BP is 155/86. Orders received.
[2021-01-30] MEDS: NIFEdipine 30 MG TAB.ER.24 PO (18:12)
[2021-01-30] MEDS: oxyCODONE/ACETAMINOPHEN (*CRX) 5-325 MG TABLET 1 TABLET PO ×2 (19:15→20:37)
--- NOTE | 2021-01-30 21:00 | PC.NURSE ---
Pt to be changed to Observations status and stay overnight.
--- NOTE | 2021-01-30 21:15 | PC.NURSE ---
Dr. Bui in room to see pt. Pt ambulating at this time. Pt denies any epigastric pain. No swelling of extremities.
--- NOTE | 2021-01-30 21:54 | PM.IMHP ---
H&P: HPI History of Present Illness Date/Time: 01/30/21 21:54 35 y/o female POD#6 after repeat . Has had a headache since delivery that waxes and wanes. No visual field change. No postural component. No epigastric or RUQ pain. No swelling. . On Lexapro 10 mg po in evenings. Chief Complaint: Headache Review of Systems Review of Systems: All systems reviewed & are unremarkable except as noted in HPI and below PMFSH Past Medical History Medical History Anxiety Post depression Rheumatoid arthritis Surgical History Surgical History History of 2016 and 2017 History of tonsillectomy and adenoidectomy History of wisdom tooth extraction 2017 Family History Family History Mother Depression Hypertension Sibling Depression Father Family history of lung cancer Depression Grandparent Family history of coronary artery disease Family history of malignant neoplasm of brain Family history of cardiovascular disease Social History Social History Smoking status: Never smoker Second hand tobacco smoke exposure: No Alcohol intake: current Substance use: never Spiritual care concerns: No Meds Home Medications and Allergies Home Medications Medication Instructions Recorded Confirmed Type prenat.vits,donna,sfr-zpzd-teesr 1 tablet PO DAILY 04/11/19 01/24/21 History omeprazole 20 mg PO DAILY 12/31/20 01/24/21 History ferrous sulfate 325 mg PO DAILY #30 tablet 01/26/21 Rx ibuprofen 600 mg PO Q6H PRN #30 tablet 01/26/21 Rx oxycodone-acetaminophen [Percocet] 1 - 2 tablet PO Q6H PRN #30 tablet 01/26/21 Rx Allergies Allergy/AdvReac Type Severity Reaction Status Date / Time No Known Allergies Allergy Unknown Verified 04/11/19 08:26 Vital Signs Vital Signs - 24 hr 01/30/21 11:06 01/30/21 11:15 01/30/21 11:16 Temperature Pulse Rate 86 86 82 Blood Pressure 155/85 H 145/79 H Blood Pressure [Right Arm] 155/85 H 01/30/21 11:31 01/30/21 11:46 01/30/21 12:01 Temperature Pulse Rate 88 88 87 Blood Pressure 155/89 H 157/78 H 158/70 H Blood Pressure [Right Arm] 01/30/21 12:16 01/30/21 12:31 01/30/21 12:46 Temperature Pulse Rate 78 91 84 Blood Pressure 157/91 H 155/86 H 149/82 H Blood Pressure [Right Arm] 01/30/21 13:01 01/30/21 13:16 01/30/21 13:31 Temperature Pulse Rate 89 80 82 Blood Pressure 152/87 H 164/82 H 161/83 H Blood Pressure [Right Arm] 01/30/21 13:45 01/30/21 13:46 01/30/21 14:42 Temperature 37.3 C Pulse Rate 84 88 Blood Pressure 157/82 H 160/83 H Blood Pressure [Right Arm] 01/30/21 15:08 01/30/21 17:50 01/30/21 18:10 Temperature 36.8 C Pulse Rate 81 101 H Blood Pressure 149/80 H 155/86 H Blood Pressure [Right Arm] 01/30/21 18:11 01/30/21 19:12 01/30/21 20:00 Temperature Pulse Rate 87 81 91 Blood Pressure 149/82 H 153/85 H 152/81 H Blood Pressure [Right Arm] 01/30/21 20:01 01/30/21 21:01 Temperature Pulse Rate 90 89 Blood Pressure 151/85 H 159/92 H Blood Pressure [Right Arm] Exam Const: Orientation/consciousness: patient oriented x3 Other: Well-developed, well-nourished female in no acute distress. Neck: Thyroid: thyroid normal Lymphatic: no lymphadenopathy noted (in neck, axilla or inguinal nodes) Resp: Effort & Inspection: normal respiratory effort Auscultation: clear to auscultation bilaterally Cardio: Rate: regular rate Rhythm: regular rhythm Heart sounds: S1 normal heart sound present and S2 normal heart sound present GI: Other: ABD: Soft, nontender, nondistended. Fundus firm, below umbilicus. No guarding or rebound tenderness. No hepatosplenomegaly. Incision c/d/i. : General: Yes no CVA tenderness Other: Deferred
[2021-01-30] MEDS: ESCITALOPRAM OXALATE 10 MG TABLET PO (23:00)
--- NOTE | 2021-01-31 01:49 | PC.NURSE ---
Addendum entered by Clinton Lanza RN 01/31/21 04:39: NOTE SHOULD BE TIMES 2027 - 01/30/2021 Original Note: Update to Dr. Bui via phone regarding blood pressures. Pt agreeable to stay overnight. Pt advised will need to stay also to assist with care of .
[2021-01-31 02:28] VITALS: BP 149/76; PULSE 80
[2021-01-31] MEDS: oxyCODONE/ACETAMINOPHEN (*CRX) 5-325 MG TABLET 2 TABLET PO ×2 (02:33→11:51)
[2021-01-31 04:23] VITALS: BP 132/72; PULSE 83
--- NOTE | 2021-01-31 04:40 | PC.NURSE ---
Pt has been dozing. Pt voices no complaints at this time. Pt states headache is improved.
[2021-01-31] MEDS: IBUPROFEN 600 MG TABLET PO (06:36)
[2021-01-31 06:40] VITALS: BP 147/81; PULSE 85
[2021-01-31 08:52] VITALS: BP 150/80; PULSE 90
[2021-01-31] MEDS: NIFEdipine 30 MG TAB.ER.24 PO (08:53)
[2021-01-31 11:47] VITALS: BP 140/73; PULSE 83
--- NOTE | 2021-01-31 12:12 | PM.DS ---
DS: Admitting Diagnosis Discharge Date 01/31/21 Admitting Diagnosis worsening hypertension headache DS: Summary Hospital Course Hospital Course: 35 yo who presented POD#6 after section with c/o worsening OSCAR. Pt was found to have several elevated BP. She denied any scotoma, RUQ pain or chnage in swelling. BP were mild to severe. Pt BP responded to PO procardia. Preeclampsia lab work wnl. Status at Discharge Functional status at discharge: independent ambulation Overall status at discharge: patient is back to baseline Time Spent with Patient Time attestation: Total time spent providing and/or coordinating discharge services: Time spent: Less than 30 minutes Exam Const: General: cooperative, healthy appearing and comfortable Nutritional Appearance: average body habitus Limitations: no limitations Eyes: General: appearance normal, both eyes and all related structures Neck: Neck: normal visual inspection Resp: Effort & Inspection: normal respiratory effort and able to speak in complete sentences Cardio: Jugular venous distension: no JVD Rate: regular rate Rhythm: regular rhythm GI: Inspection: normal to inspection and incision GI Palp: No abdominal tenderness and No Guarding due to palpation present (GI) Skin: General skin exam: normal color Neuro: General: patient oriented x3 and moves all extremities Cognition (Neuro): normal cognition Speech: normal speech Gait exam (Neuro): Normal gait present Extrem: General: normal to inspection and edema Psych: Appearance: grossly normal Mental Status: mental status grossly normal DS: Data Data Completed and Pending Labs on day of discharge: Labs from last 24 hours 01/30/21 11:06 WBC 8.3 RBC 3.32 L Hgb 9.3 L Hct 29.3 L MCV 88.3 MCH 28.0 MCHC 31.7 L RDW 12.6 Plt Count 292 D MPV 9.3 Immature Gran % (Auto) 4.2 H Neut % (Auto) 72.0 Lymph % (Auto) 14.7 L Weakley % (Auto) 6.5 Eos % (Auto) 1.9 Baso % (Auto) 0.7 Lymph # (Auto) 1.22 Weak[place] # (Auto) 0.5 Eos # (Auto) 0.2 Baso # (Auto) 0.1 Abs Immat Gran (auto) 0.35 H Absolute Neuts (auto) 6.0 Absolute Nucleated RBC 0.0 Nucleated RBC % 0.0 Discharge Plan Discharge Discharging Clinician: Atul Farfan Patient Disposition: Home, Self-Care Activity: as tolerated and pelvic rest Diet: regular Patient Instructions: Antibiotic Form Stand Alone Forms: General Discharge Information Follow-up/Referrals: Demond Bui MD [Physician] - 1 Week Discharge Medications: New hydrocodone-acetaminophen 5-325 mg tablet 1 tablet PO Q6H PRN (Reason: pain) Qty: 28 RF: 0 nifedipine [Procardia XL] 30 mg Tablet Extended Release 24hr 30 mg PO QAM Qty: 90 RF: 0 Continued prenat.vits,donna,hsk-jgqr-varrn Tablet 1 tablet PO DAILY RF: 0 omeprazole 20 mg Capsule,Delayed Release(Dr/Ec) 20 mg PO DAILY RF: 0 ibuprofen 600 mg tablet 600 mg PO Q6H PRN (Reason: cramps) Qty: 30 RF: 0 ferrous sulfate 325 mg (65 mg iron) tablet 325 mg PO DAILY Qty: 30 RF: 0 oxycodone-acetaminophen [Percocet] 5-325 mg tablet 1 - 2 tablet PO Q6H PRN (Reason: pain) Qty: 30 RF: 0 Date of admission: 01/30/21 21:00 Primary Care Provider: PHYSICIAN,DRUG DEPARTMENT WORKER Admitting Provider: Demond Bui Attending physician on admission: Demond Bui Condition: Stable
== END 2021-01-31 13:17 | disposition home or self-care (01) ==
LOC: ANHOBOP 01-31 01:18 → ANHOBPP 01-31 12:16
PROVIDERS: Admitting Provider Obstetrics & Gynecology; Visit Provider Student in an Organized Health Care Education/Training Program
DX: O16.5 Unspecified maternal hypertension, complicating the puerperium (principal); R51.9 Headache, unspecified
CPT/HCPCS: 36415; 80053; 84550; 85025; A9270; G0378

== ENCOUNTER 2021-08-28 00:33 | Day surgery (SDC) | payer OTHER, SELFPAY ==
[2021-07-23 12:20] VITALS: BMI 26.5
--- NOTE | 2021-07-23 12:53 | PC.NURSE ---
Addendum entered by Olinda Pierson RN 07/23/21 13:00: stop ibuprofen per Dr. Bui Original Note: Report to the Outpatient Waiting Room, entrance under the green pavilion located off [facility], at 1230 on date 07-31-21. OR Time: 1430. - You and your visitor will be asked a series of questions to screen for COVID 19 for your protection. - A mask is required within the hospital. Preoperative COVID Testing Requirements: No COVID Test needed if: (proof is required; if not received patient will have Rapid Test prior to entry) - Patient has received COVID Vaccine at least 14 days prior to procedure date or - Patient has positive COVID test result within last 90 days of surgery date. COVID Test needed if above criteria is not met If not COVID vaccinated a COVID test must be conducted within 72 hours of surgery and patient is asked to isolate self from time of testing until procedure. You will go to the [facility] for your COVID testing. The [facility] [facility] is located at the corner of [address] [facility]. You will only be called if COVID results are positive and your surgeon may reschedule your elective surgery date. Patients may have clear liquids (water, carbonated beverages, clear teas, apple juice) until 3 hours prior to surgery with a maximum of 20 ounces. 1130 - No food from midnight until time of surgery - Infants may have breast milk until 4 hours before surgery, infant formula 6 hours prior to surgery. - Children will be allowed to drink immediately following surgery. If applicable, please bring a bottle or sippy cup to assist with drinking. Juice, water, soda, and popsicles are readily available. For infants on formula, please bring formula the day of surgery. Pacifiers are allowed. Take the following medications with a SIP of water the morning of surgery: hydroxychloroquine, sulfasalazine Medications to discontinue per physician: vitamins and supplements Date to take last dose: 07-28-21 Please no make-up, nail lithuanian, hairspray, perfume, deodorant, or body powder the day of surgery. No jewelry (including any body piercings) or valuables the day of surgery, leave them at home. Please take a shower or bath the night before, or the morning of, surgery with an antibacterial soap. Wear comfortable, loose fitting clothing. Children are encouraged to wear pajamas. - Jewelry must be removed prior to entering the operating room. Rings and piercings that are not removed may be cut off. - The hospital will not accept responsibility for valuables. - Please leave all valuables, including medications, at home the day of surgery. If you are going home after surgery, a licensed emergency medical technician/driver must drive you home. - NO public transportation without another adult. - We recommend that an adult stay with you for 24 hours following discharge. - We also recommend that you do not drive, make important decision, drink alcoholic beverages, or take any drugs that were not prescribed by your health care provider for at least 24 hours after your discharge time. For Pediatric surgeries, we recommend two adults accompany the child home (only one inside the building at this time). One visitor will be allowed to accompany the patient into the hospital. Patients visitor will be instructed to remain with patient at all times or leave the building. We will allow the visitor to come back to the postoperative area when patient is ready. Follow any additional instructions given to you from your surgeon. Telephone instructions given to Lila Morel and asked if any additional questions and then verbalized understanding. Patient advised to call surgeon office or pre surgery nurse liaison [phone] if any additional questions.
[2021-08-21 12:22] VITALS: BMI 26.5
--- NOTE | 2021-08-21 12:32 | PC.NURSE ---
Report to the Outpatient Waiting Room, entrance under the green pavilion located off [facility], at time ___1130____ on date __08/28/21____. OR Time: 1330___. - You and your visitor will be asked a series of questions to screen for COVID 19 for your protection. - A mask is required within the hospital. Preoperative COVID Testing Requirements: No COVID Test needed if: (proof is required; if not received patient will have Rapid Test prior to entry) - Patient has received COVID Vaccine at least 14 days prior to procedure date or - Patient has positive COVID test result within last 90 days of surgery date. COVID Test needed if above criteria is not met If not COVID vaccinated a COVID test must be conducted within 72 hours of surgery and patient is asked to isolate self from time of testing until procedure. You will go to the [facility] for your COVID testing. The [facility] is located at the corner of [address] [facility]. You will only be called if COVID results are positive and your surgeon may reschedule your elective surgery date. Patients may have clear liquids (water, carbonated beverages, clear teas, apple juice) until 3 hours prior to surgery (1030 AM) with a maximum of 20 ounces. - No food from midnight until time of surgery - Infants may have breast milk until 4 hours before surgery, formula 6 hours prior to surgery. - Children will be allowed to drink immediately following surgery. If applicable, please bring a bottle or sippy cup to assist with drinking. Juice, water, soda, and popsicles are readily available. For infants on formula, please bring formula the day of surgery. Pacifiers are allowed. Take the following medications with a SIP of water the morning of surgery: _PREDNISONE, TYLENOL IF NEEDED__ Medications to discontinue per physician _IBUPROFEN PER DR. HEAD'S INSTRUCTIONS. VITAMINS 3 DAYS PRIOR TO SURGERY, Date to take last dose 08/24/21_ Please no make-up, nail nigerian, hairspray, perfume, deodorant, or body powder the day of surgery. No jewelry (including any body piercings) or valuables the day of surgery, leave them at home. Please take a shower or bath the night before, or the morning of, surgery with an antibacterial soap. Wear comfortable, loose fitting clothing. Children are encouraged to wear pajamas. - Jewelry must be removed prior to entering the operating room. Rings and piercings that are not removed may be cut off. - The hospital will not accept responsibility for valuables. - Please leave all valuables, including medications, at home the day of surgery. If you are going home after surgery, a licensed vibratory pile driver must drive you home. - NO public transportation without another adult. - We recommend that an adult stay with you for 24 hours following discharge. - We also recommend that you do not drive, make important decision, drink alcoholic beverages, or take any drugs that were not prescribed by your health care provider for at least 24 hours after your discharge time. For Pediatric surgeries, we recommend two adults accompany the child home (only one inside the building at this time). One visitor will be allowed to accompany the patient into the hospital. Patients visitor will be instructed to remain with patient at all times or leave the building. We will allow the visitor to come back to the postoperative area when patient is ready. Follow any additional instructions given to you from your surgeon. Telephone instructions given to ____PT and asked if any additional questions and then verbalized understanding. Patient advised to call surgeon office or pre surgery nurse liaison [phone] if any additional questions.
--- NOTE | 2021-08-27 13:57 | WPDANESEPPF ---
Anes - Initial Pre Proc Eval Procedure: Operation Date: 08/28/21 13:30 Proposed Procedures p Hysteroscopy, Dilation and Curettage, Emily Endometrial Ablation - Demond Bui MD Date/Time: 08/27/21 13:57 Surgeon: Demond Bui MD Pre Op Diagnosis: irregular bleeding Patient Data Age: 35 Gender: F Height: 1.6 m Weight: 68.04 kg Allergies Allergy/AdvReac Type Severity Reaction Status Date / Time prednisone Allergy Intermediate Rash Verified 08/28/21 11:54 Home Medications Medication Instructions Recorded Confirmed Type prenat.vits,donna,iaz-egkx-kxksc 1 tablet PO DAILY 04/11/19 08/28/21 History acetaminophen [Tylenol Extra 500 mg PO Q6H PRN 07/23/21 08/28/21 History Strength] diphenhydramine HCl [Benadryl 25 mg PO HS PRN 07/23/21 08/28/21 History Allergy] hydroxychloroquine 200 mg PO BID 07/23/21 08/28/21 History ibuprofen 600 mg PO Q6H PRN 07/23/21 08/28/21 History sulfasalazine 0.5 g PO BID 07/23/21 08/28/21 History Patient hx anesthesia problems: none Family hx anesthesia problems: none Results Review: All pre-operative results and documents have been reviewed as part of the pre-operative evaluation. [facility] Past Medical History Medical History Anxiety Post depression Rheumatoid arthritis Scoliosis Surgical History Surgical History History of 2017 and 2018 History of tonsillectomy and adenoidectomy History of wisdom tooth extraction 2017 Family History Family History Mother Depression Hypertension Sibling Depression Father Family history of lung cancer Depression Grandparent Family history of coronary artery disease Family history of malignant neoplasm of brain Family history of cardiovascular disease Social History Social History Smoking status: Never smoker Second hand tobacco smoke exposure: No Alcohol intake: former Substance use: never Substance use type: does not use Living arrangements: with family Spiritual care concerns: No Anes - Eval Final PreProcedure Day of Procedure 08/27/21 13:57 Patient weight: overweight Heart: regular rate and rhythm Lungs: clear to auscultation and normal air movement Airway: Mallampati scale class II Neurological: alert and oriented Last oral intake: >/= 8 hours ASA classification: II Emergent: no Anesthetic plan: proceed Anesthesia type and monitoring: general GIVS and standard monitoring Results Review: All pre-operative results and documents have been reviewed as part of the pre-operative evaluation. Informed Consent: The patient's anesthetic plan and its attendant risks and benefits were discussed with the patient/family/POA. Questions were solicited and answers provided to the satisfaction of the patient/family/POA.
--- NOTE | 2021-08-28 12:05 | PM.IMHP ---
H&P: HPI History of Present Illness Date/Time: 08/28/21 12:05 35 y/o with vaginal bleeding most days. She has had a tubal ligation for contraception. She desires surgical management of her problem. Chief Complaint: Irregular periods Review of Systems Review of Systems: All systems reviewed & are unremarkable except as noted in HPI and below PMFSH Past Medical History Medical History Anxiety Post depression Rheumatoid arthritis Scoliosis Surgical History Surgical History History of 2017 and 2018 History of tonsillectomy and adenoidectomy History of wisdom tooth extraction 2017 Family History Family History Mother Depression Hypertension Sibling Depression Father Family history of lung cancer Depression Grandparent Family history of coronary artery disease Family history of malignant neoplasm of brain Family history of cardiovascular disease Social History Social History Smoking status: Never smoker Second hand tobacco smoke exposure: No Alcohol intake: former Substance use: never Substance use type: does not use Living arrangements: with family Spiritual care concerns: No Meds Home Medications and Allergies Home Medications Medication Instructions Recorded Confirmed Type prenat.vits,donna,usz-ljdn-vmyat 1 tablet PO DAILY 04/11/19 08/28/21 History acetaminophen [Tylenol Extra 500 mg PO Q6H PRN 07/23/21 08/28/21 History Strength] diphenhydramine HCl [Benadryl 25 mg PO HS PRN 07/23/21 08/28/21 History Allergy] hydroxychloroquine 200 mg PO BID 07/23/21 08/28/21 History ibuprofen 600 mg PO Q6H PRN 07/23/21 08/28/21 History sulfasalazine 0.5 g PO BID 07/23/21 08/28/21 History Allergies Allergy/AdvReac Type Severity Reaction Status Date / Time prednisone Allergy Intermediate Rash Verified 08/28/21 11:54 Exam Const: Orientation/consciousness: patient oriented x3 Other: Well-developed, well-nourished female in no acute distress. Neck: Thyroid: thyroid normal Lymphatic: no lymphadenopathy noted (in neck, axilla or inguinal nodes) Resp: Effort & Inspection: normal respiratory effort Auscultation: clear to auscultation bilaterally Cardio: Rate: regular rate Rhythm: regular rhythm Heart sounds: S1 normal heart sound present and S2 normal heart sound present GI: Other: ABD: Soft, nontender, nondistended. No guarding or rebound tenderness. No hepatosplenomegaly. : General: Yes no CVA tenderness Other: External genitalia: normal female hair distribution, without lesion. Urethral meatus: no lesion, non prolapsed. Bladder: no mass, nontender Vagina: well-estrogenized, without lesion or discharge. No cystocele or rectocele. Cervix: no lesion or discharge. Uterus: small, anteverted, freely mobile, nontender Adnexa: no mass or tenderness. Anus/perineum: no lesions, nontender Back/Spine/Pelvis: Back: no CVA tenderness Skin: General skin exam: normal color and no rashes or lesions noted Neuro: General: patient oriented x3 Extrem: Other: Extremities: nontender with no edema Psych: Mental Status: mental status grossly normal Affect: normal affect Assessment and Plan Assessment and plan (1) Metrorrhagia: Code(s): N92.1 - Excessive and frequent menstruation with irregular cycle Status: Acute Assessment and Plan: She desires surgical management of her problem. Specifically, I have offered her a hysteroscopy, dilation and sharp curettage, and endometrial ablation. She understands risks of surgery to include risks of anesthesia, risks of pain, infection, bleeding, blood products, thromboembolic phenomena and damage to adjacent structures such as bowel, bladder, ureters, blood vessels and nerves. She un
--- NOTE | 2021-08-28 12:08 | WPDHPUPDATE1 ---
History and Physical Update Update Date/Time: 08/28/21 12:08 History and Physical has been reviewed, including an updated exam of the patient. There are NO changes in the patient's condition. Risks, benefits, and alternatives have been discussed and questions answered. Patient agrees to proceed with procedure.
[2021-08-28 12:13] VITALS: BMI 26.2
[2021-08-28 12:14] VITALS: BP 129/76; PULSE 76; RESP 16; TEMP 36.4; O2SAT 99
[2021-08-28] MEDS: ACETAMINOPHEN 500 MG TABLET 1000 MG PO (12:24)
[2021-08-28] MEDS: LACTATED RINGERS 1,000 ML 30 ML IV CONT (12:33)
--- NOTE | 2021-08-28 14:03 | W.PM.PROC2 ---
Procedure Note - Detailed Date of Procedure 08/28/21 Pre-op Diagnosis Metrorrhagia Post-op Diagnosis Same Procedure Performed Hysteroscopy Dilation and sharp curettage Endometrial ablation Surgeon Demond Bui MD Anesthesia MAC and Local (1% lidocaine) Findings Sharply anteverted uterus, sounded to 7.5 cm, with cervical length 3 cm. Both tubal ostia seen. Endometrial cavity unremarkable. Description of Procedure The patient was taken to the operating room where she was prepared and draped in the usual sterile fashion in the dorsal lithotomy position. The bladder was drained with a red rubber catheter. A sterile speculum was placed into the vagina. The anterior lip of the cervix was grasped with single-tooth tenaculum. Ten mL of 1% lidocaine was administered in a paracervical block. The cervix was then gently dilated using Hegar dilators until an 8 mm dilator could be passed. The uterus was found to be sharply anteverted, likely owing to adhesions from prior cesareans. Dilation was undertaken slowly and gently, being mindful of the unusual contour of the uterine cavity. Hysteroscopy was performed using sterile saline as a distention medium. Findings are as noted above. Sharp curettage was then performed, and endometrial curettings were collected on a Telfa pad and passed off to be sent to pathology. Finally, the the Emily device was advanced and endometrial ablation commenced without difficulty. The device was withdrawn and a second look was taken using the hysteroscope. Excellent coverage of the endometrial cavity was noted. The tenaculum was removed. Hemostasis was excellent. Sponge, lap, needle and instrument counts were correct. The patient was awakened and taken to the recovery room in stable condition. I was present and scrubbed through the entire procedure. Implants None Estimated Blood Loss 30 Drains No Packing No Pathology Yes (Endometrial curettings) Complications None Condition Stable Disposition PACU
[2021-08-28 14:04] VITALS: BP 147/82; PULSE 88; RESP 16; O2SAT 98
[2021-08-28] MEDS: fentaNYL CITRATE INJ (*CRX) 100 MCG/2 ML VIAL 25 MCG IV PUSH ×4 (14:18→14:35)
[2021-08-28] MEDS: KETOROLAC 30 MG/ML VIAL (*BKC) IV PUSH (14:25)
[2021-08-28 14:30] VITALS: BP 157/98; PULSE 88; O2SAT 100
[2021-08-28] MEDS: oxyCODONE HCL (*CRX) 5 MG TAB IR PO (14:47)
[2021-08-28 15:00] VITALS: BP 140/88; PULSE 77
[2021-08-28 15:25] VITALS: BP 129/84; PULSE 75
== END 2021-08-28 15:33 | disposition home or self-care (01) ==
PROVIDERS: PCP Family Medicine; Visit Provider Obstetrics & Gynecology
PROC: 0U5B8ZZ Destruction of Endometrium, Via Natural or Artificial Opening Endoscopic (ICD-10-PCS; CPT 58563; principal; 2021-08-28 13:30)
DX: N92.1 Excessive and frequent menstruation with irregular cycle (principal); N99.71 Accidental puncture and laceration of a genitourinary system organ or structure during a genitourinary system procedure; M06.9 Rheumatoid arthritis, unspecified; F41.9 Anxiety disorder, unspecified
CPT/HCPCS: 58563; 57720; 88305; A9270; J1885; J2250; J2704; J3010; J7030; J7120

== ENCOUNTER 2021-09-27 03:11 | Emergency (ER) | payer OTHER, SELFPAY ==
[2021-09-27] VITALS (16 sets, daily range): BP systolic 113–166; BP diastolic 64–98; PULSE 72–90; RESP 16–20; TEMP 36.6; O2SAT 94–99
--- NOTE | ~2021-09-27 | US_ITS ---
EXAMINATION: US pelvic complete w TV DATE: 09/27/2021 07:45 INDICATION: Lower abdominal pain TECHNIQUE: Multiple transabdominal and endovaginal sonographic images of the pelvis were obtained. COMPARISON: None. FINDINGS: The uterus measures 8.6 x 4.0 x 4.6 cm. The endometrial complex measures 12-13 mm in thickness. Ther e is a small amount of anechoic fluid as well as some isoechoic soft tissue with some internal vascul ar flow on color Doppler. The right ovary measures 3.9 x 3.6 x 3.4 cm and contains a 3.6 x 3.2 x 2.9 cm anechoic cyst. The left ovary measures 2.2 x 2.2 x 1.8 cm. Lesser flow identified in both ovaries on color Doppler. There is no free fluid in the pelvis. IMPRESSION: 1. Small amount of fluid and some vascularized isoechoic soft tissue within the endometrial canal. Di fferential would include endometrial polyp, fibroid, retained products of conception related to earli er or changes related to reported recent endometrial ablation. 2. 3.6 cm simple appearing right ovarian cyst. Reviewed, dictated and finalized at location A. IMPRESSION: 1. Small amount of fluid and some vascularized isoechoic soft tissue within the endometrial canal. Differential would include endometrial polyp, fibroid, wan ined products of conception related to earlier or changes related to reported recent endometrial ablation. 2. 3.6 cm simple appearing right ovarian cyst.
--- NOTE | ~2021-09-27 | CT_ITS ---
EXAMINATION: CT abdomen pelvis w con INDICATION: Lower abdominal pain TECHNIQUE: Computed tomographic images of the abdomen and pelvis were obtained after the administrati on of 75 cc of Omnipaque 300 intravenous contrast. The dose-length product (DLP) was 381.63 mGy-cm. A utomated exposure control and iterative reconstruction technique were employed. COMPARISON: 03/09/2017 FINDINGS: Minimal dependent atelectasis is present in the lung bases. The heart size is normal. The l iver, spleen, pancreas, gallbladder, and adrenal glands are normal. The kidneys are unremarkable. No pathologically enlarged abdominal or pelvic lymph nodes are identified. There is no free intraperiton eal gas or evidence of bowel obstruction. The appendix is normal. There is a 3.5 cm right adnexal cys t. A moderate volume of colonic stool is present. A small amount of fluid is present in the endocerv ical canal. IMPRESSION: 1. No CT correlate for the patient's symptoms. Reviewed, dictated and finalized at location A.
[2021-09-27 03:48] LABS: Basophils Absolute Auto 0.1 K/mm3 (0.0-0.1); Basophils Percent Auto 0.7 % (0.2-1.2); Eosinophils Absolute Auto 0.2 K/mm3 (0-0.3); Hematocrit 39.3 % (37.0-47.0); Immature Granulocyte Absolute 0.02 K/mm3 (0.00-0.031); Immature Granulocyte Percent A 0.3 % (0-0.5); Lymphocytes Absolute Auto 2.64 K/mm3 (0.9-3.2); Lymphocytes Percent Auto 34.5 % (18.3-44.2); Mean Corpuscular HGB Conc 33.1 g/dl (32-36); Mean Corpuscular Volume 90.6 fl (80-100); Mean Platelet Volume 9.8 fl (7.4-10.4); Monocytes Absolute Auto 0.5 K/mm3 (0.1-0.6); Monocytes Percent Auto 6.9 % (2.6-8.5); Neutrophils Absolute Auto 4.3 K/mm3 (1.3-6.7); Neutrophils Percent Auto 55.6 % (45.5-73.1); Platelet Count Result 314 k/mm3 (150-375); Red Blood Count 4.34 M/mm3 (4.2-5.4); Red Cell Distribution Width 12.2 % (11.5-14.5); White Blood Count 7.7 K/mm3 (4.5-10.0)
[2021-09-27 03:57] LABS: Alanine Aminotransferase 18 U/L (6-35); Albumin Level 4.5 g/dL (3.5-5.1); Alkaline Phosphatase 137 U/L (38-126); Anion Gap 9 mmol/L (8-16); Aspartate Amino Transferase 32 U/L (14-36); Bilirubin,Total 0.3 mg/dL (0.2-1.3); Blood Urea Nitrogen 16 mg/dL (7-17); Calcium 8.4 mg/dL (8.4-10.2); Carbon Dioxide 26 mmol/L (22-30); Chloride 105 mmol/L (98-107); Estimated CRCL calculation 90 ml/min; Estimated Glomerular Filt Rate > 60; Glucose 90 mg/dL (65-110); Lipase 104 U/L (23-300); Potassium 3.9 mmol/L (3.4-5.0); Sodium 140 mmol/L (137-145)
[2021-09-27 03:59] LABS: Prothrombin Time 12.8 Seconds (11.1-14.7)
[2021-09-27 04:00] LABS: Partial Thromboplastin Time 31.9 SECONDS (22.3-36.8)
--- NOTE | 2021-09-27 04:14 | ED.ABDPAIN ---
HPI - Abdominal Pain General Chief Complaint: Abdominal Pain <DO Matt Perez Last Filed: 09/27/21 07:03> Stated Complaint: abd pelvic pain <DO Matt Perez Last Filed: 09/27/21 07:03> Time Seen by Provider: 09/27/21 03:24 <DO Matt Perez Last Filed: 09/27/21 07:03> Source: RN notes reviewed <James Dorantes DO - Last Filed: 09/27/21 07:03> History of Present Illness HPI narrative: Patient presents emergency department from home for abdominal pain. Patient states that she had a approximately 8 months ago. She states that since that time she said continue problems with persistent vaginal bleeding she states she had an ablation done 4 weeks ago to try to stop the vaginal bleeding she states that she continues to have vaginal bleeding since the ablation she is followed by Dr Bui is seen him several times she states that with that she is having abdominal pain states abdominal pain is been constant over the past 4 weeks but worsened this evening the pain is described as sharp and stabbing and diffuse throughout the abdomen states is associated with nausea she denies any fevers or chills vomiting diarrhea or any other symptoms. She states she did take 2 oxycodone's this evening ibuprofen with minimal relief <DO Matt Perez Last Filed: 09/27/21 07:03> Related Data Home Medications: Home Medications Medication Instructions Recorded Confirmed prenat.vits,donna,xyx-fhnd-bgbuo 1 tablet PO DAILY 04/11/19 08/28/21 acetaminophen 500 mg PO Q6H PRN 07/23/21 08/28/21 diphenhydramine HCl [Benadryl 25 mg PO HS PRN 07/23/21 08/28/21 Allergy] hydroxychloroquine 200 mg PO BID 07/23/21 08/28/21 ibuprofen 600 mg PO Q6H PRN 07/23/21 08/28/21 sulfasalazine 0.5 g PO BID 07/23/21 08/28/21 <DO Matt Perez Last Filed: 09/27/21 07:03> Allergies/Adverse Reactions: Allergies Allergy/AdvReac Type Severity Reaction Status Date / Time prednisone Allergy Intermediate Rash Verified 09/27/21 03:15 <James Dorantes DO - Last Filed: 09/27/21 07:03> Review of Systems Review of Systems: Gen.: Denies fevers or chills ENT: Denies congestion Respiratory: Denies shortness of breath or cough CV: Denies chest pain or palpitations GI: See HPI denies burning, urgency, frequency or hematuria Musculoskeletal: Denies back pain or muscle pain Neuro: Denies numbness, tingling, weakness or focal weakness Skin: Denies rash Except as documented, all other systems reviewed and negative <James Dorantes DO - Last Filed: 09/27/21 07:03> [facility] Past Medical History Medical History: Medical History Anxiety Post depression Rheumatoid arthritis Scoliosis <DO Matt Perez Last Filed: 09/27/21 07:03> Surgical History Surgical History: Surgical History History of 2017 and 2018 History of tonsillectomy and adenoidectomy History of wisdom tooth extraction 2017 <James Dorantes DO - Last Filed: 09/27/21 07:03> Family History Family History: Family History Mother Depression Hypertension Sibling Depression Father Family history of lung cancer Depression Grandparent Family history of coronary artery disease Family history of malignant neoplasm of brain Family history of cardiovascular disease <DO Matt Preez Last Filed: 09/27/21 07:03> Social History Social History: Social History Smoking status: Never smoker Second hand tobacco smoke exposure: No Alcohol intake: former Substance use: never Substance use type: does not use Spiritual care concerns: No <DO Matt Perez Last Filed: 09/27/21 07:03> Exam Narrative: APPEARANCE: No acute distress, nonto
[2021-09-27] MEDS: ONDANSETRON INJ 4 MG/2 ML VIAL IV PUSH ×2 (04:16→10:21)
[2021-09-27] MEDS: SODIUM CHLORIDE 0.9% IV 1,000 ML 999 ML IV CONT ×2 (04:16→06:22)
[2021-09-27] MEDS: MORPHINE SULFATE (*CRX) 4 MG/ML INJ IV PUSH ×2 (04:17→10:25)
[2021-09-27 05:20] LABS: Add Urine Microscopic? YES; Appearance Urine Slightly Cloudy (Clear); Bilirubin Urine 2+ (Negative); Blood Urine 3+ (Negative); Color Urine Red (Yellow); Glucose Urine UA Negative (Negative); Ketones Urine 1+ mg/dL (Negative); Leukocyte Esterase Ur 3+ LEU/UL (Negative); Nitrate Urine Negative (Negative); Protein Urine 3+ mg/dL (Negative)
[2021-09-27 05:28] LABS: RBC Urine >75 /hpf (0-2); WBC Urine 0-3 /hpf
--- NOTE | 2021-09-27 07:25 | PC.NURSE ---
pt returned from ultra sound via wheelchair at this time.
--- NOTE | 2021-09-27 07:27 | PC.NURSE ---
Took report from assistant casino shift manager, pt taken to ultrasound.
--- NOTE | 2021-09-27 10:15 | PC.NURSE ---
VRBO 4MG MORPHINE AND 4MG ZOFRAN PER ERP DR BREWSTER
== END 2021-09-27 10:34 | disposition home or self-care (01) ==
PROVIDERS: Emergency Medicine; Emergency Provider Emergency Medicine; PCP Family Medicine
DX: N83.201 Unspecified ovarian cyst, right side (principal); N93.9 Abnormal uterine and vaginal bleeding, unspecified; M06.9 Rheumatoid arthritis, unspecified
CPT/HCPCS: 36415; 74177; 76830; 76856; 80053; 81001; 83690; 85025; 85610; 85730; 96361; 96374; 96375; 96376; 99284; J2270; J2405; J7030; Q9967

== ENCOUNTER 2021-12-05 09:46 | Outpatient (CLI) | payer OTHER, SELFPAY | END 2021-12-05 09:47 | disposition home or self-care (01) | LOC: ANHSURGERY 09:49 | PROVIDERS: PCP Family Medicine; Visit Provider Obstetrics & Gynecology | DX: Z90.711 Acquired absence of uterus with remaining cervical stump (principal) | CPT/HCPCS: 36415; 86850; 86900; 86901 ==

== ENCOUNTER 2021-12-09 14:23 | Inpatient (IN) | payer OTHER, SELFPAY ==
[2021-12-02 15:50] VITALS: BMI 25.9
--- NOTE | 2021-12-02 16:18 | SUR.PREOP ---
Addendum entered by Nemo Ball RN 12/02/21 16:26: Per Dr. Bui last dose of Humira to be given 12/02/21. Original Note: Report to the Outpatient Waiting Room, entrance under the green pavilion located off [facility], at time 1000 on date ____12/09/21___. OR Time: 1200. - You and your visitor will be asked a series of questions to screen for COVID 19 for your protection. - Only one visitor is allowed at this time. - The patient visitor is requested to leave or wait in car when not with patient. - A mask is required within the hospital. Patients may have clear liquids (water, carbonated beverages, clear teas, apple juice) until 3 hours (0900) prior to surgery with a maximum of 20 ounces. - No food from midnight until time of surgery - Infants may have breast milk until 4 hours before surgery, formula 6 hours prior to surgery. - Children will be allowed to drink immediately following surgery. If applicable, please bring a bottle or sippy cup to assist with drinking. Juice, water, soda, and popsicles are readily available. For infants on formula, please bring formula the day of surgery. Pacifiers are allowed. Take the following medications with a SIP of water the morning of surgery: ____Clarify sulfasalazine with Dr. Bui Medications to discontinue per physician Clarify sulfasalazine with Dr. Bui and Ibuprofen Date to take last dose 12/05/21 Please no make-up, nail cypriot, hairspray, perfume, deodorant, or body powder the day of surgery. No jewelry (including any body piercings) or valuables the day of surgery, leave them at home. Please take a shower or bath the night before, or the morning of, surgery with an antibacterial soap. Wear comfortable, loose fitting clothing. Children are encouraged to wear pajamas. - Jewelry must be removed prior to entering the operating room. Rings and piercings that are not removed may be cut off. - The hospital will not accept responsibility for valuables. - Please leave all valuables, including medications, at home the day of surgery. If you are going home after surgery, a licensed driver trainee must drive you home. - NO public transportation without another adult. - We recommend that an adult stay with you for 24 hours following discharge. - We also recommend that you do not drive, make important decision, drink alcoholic beverages, or take any drugs that were not prescribed by your health care provider for at least 24 hours after your discharge time. For Pediatric surgeries, we recommend two adults accompany the child home (only one inside the building at this time). Follow any additional instructions given to you from your surgeon. If you or anyone in your household have experienced Covid symptoms in the past week, please notify your surgeon or the nurse liaison at the phone number below for possible testing. Telephone instructions given to ____patient and asked if any additional questions and then verbalized understanding. Patient advised to call surgeon office or pre surgery nurse liaison [phone] if any additional questions.
--- NOTE | 2021-12-04 10:18 | SUR.PREOP ---
This RN called patient as a follow up to concern at time of preop interview and patient wanting to bring baby day of surgery. She was informed at this time visitor restrictions related to increased Covid numbers and baby should not come day of surgery. Also spoke to Shalini at Dr Bui office to inform.
[2021-12-09] VITALS (9 sets, daily range): BP systolic 102–153; BP diastolic 57–83; PULSE 65–98; RESP 7–18; TEMP 36.2–36.6; O2SAT 94–100
[2021-12-09] MEDS: LACTATED RINGERS 1,000 ML 30 ML IV CONT ×2 (11:30→14:38)
--- NOTE | 2021-12-09 11:40 | P.PNAN_ITS ---
Anes - Initial Pre Proc Eval Procedure: Operation Date: 12/09/21 12:00 Proposed Procedures p Abdominal Supracervical Hysterectomy with Bilateral Salpingectomy - Demond Bui MD Date/Time: 12/09/21 11:40 Surgeon: Demond Bui MD Pre Op Diagnosis: pain, irreg bleeding, enlarge uterus Patient Data Age: 36 Gender: F Height: 1.6 m Weight: 66.3 kg Allergies Allergy/AdvReac Type Severity Reaction Status Date / Time prednisone Allergy Intermediate Rash Verified 12/09/21 11:38 Home Medications Medication Instructions Recorded Confirmed Type prenat.vits,donna,xzo-ktea-cbiba 1 tablet PO DAILY 04/11/19 12/09/21 History acetaminophen 500 mg capsule 500 mg PO Q6H PRN Pain 07/23/21 12/09/21 History diphenhydramine HCl 25 mg tablet 25 mg PO HS PRN Allergy Symptoms 07/23/21 12/09/21 History (Benadryl Allergy) hydroxychloroquine 200 mg tablet 200 mg PO BID 07/23/21 12/09/21 History ibuprofen 600 mg tablet 600 mg PO Q6H PRN Pain 07/23/21 12/09/21 History sulfasalazine 500 mg 1,500 mg PO BID 07/23/21 12/09/21 History tablet,delayed release adalimumab 40 mg/0.4 mL 40 mg subcut USEASDIRECTD 12/02/21 12/09/21 History subcutaneous pen kit (Humira(CF) Pen) escitalopram oxalate 20 mg tablet 20 mg PO HS 12/02/21 12/09/21 History Patient hx anesthesia problems: none Family hx anesthesia problems: none Results Review: All pre-operative results and documents have been reviewed as part of the pre- operative evaluation. [facility] Past Medical History Medical History Anxiety Post depression Rheumatoid arthritis Scoliosis Surgical History Surgical History History of 2016 and 2018 History of tonsillectomy and adenoidectomy History of wisdom tooth extraction 2017 Family History Family History Mother Depression Hypertension Sibling Depression Father Family history of lung cancer Depression Grandparent Family history of coronary artery disease Family history of malignant neoplasm of brain Family history of cardiovascular disease Social History Social History Smoking status: Never smoker Second hand tobacco smoke exposure: No Alcohol intake: former Substance use: never Substance use type: does not use Living arrangements: with family Spiritual care concerns: No Anes - Eval Final PreProcedure Day of Procedure 12/09/21 11:40 Patient weight: normal Heart: regular rate and rhythm Lungs: clear to auscultation Airway: Mallampati scale class II Neurological: alert and oriented Last oral intake: >/= 8 hours ASA classification: II Emergent: no Anesthetic plan: proceed Anesthesia type and monitoring: general ETT and standard monitoring Results Review: All pre-operative results and documents have been reviewed as part of the pre- operative evaluation. Informed Consent: The patient's anesthetic plan and its attendant risks and benefits were discussed with the patient/family/POA. Questions were solicited and answers provided to the satisfaction of the patient/family/POA.
[2021-12-09] MEDS: KETOROLAC 15 MG/ML VIAL (*BKC) IV PUSH (11:43)
[2021-12-09] MEDS: ACETAMINOPHEN 500 MG TABLET 1000 MG PO (11:43)
--- NOTE | 2021-12-09 12:09 | PM.IMHP ---
H&P: HPI History of Present Illness Date/Time: 12/09/21 12:09 Chief Complaint: Bleeding Narrative: 36 y/o with persistent vaginal bleeding despite endometrial ablation. She desires definitive treatment with hysterectomy. Review of Systems Review of Systems: All systems reviewed & are unremarkable except as noted in HPI and below PMFSH Past Medical History Medical History (Updated 12/09/21 @ 12:11 by Demond Bui MD) Anxiety Post depression Rheumatoid arthritis Scoliosis Surgical History Surgical History History of 2016 and 2017 History of endometrial ablation History of tonsillectomy and adenoidectomy History of wisdom tooth extraction 2016 Family History Family History Mother Depression Hypertension Sibling Depression Father Family history of lung cancer Depression Grandparent Family history of coronary artery disease Family history of malignant neoplasm of brain Family history of cardiovascular disease Social History Social History Smoking status: Never smoker Second hand tobacco smoke exposure: No Alcohol intake: former Substance use: never Substance use type: does not use Living arrangements: with family Spiritual care concerns: No Meds Home Medications and Allergies Home Medications Medication Instructions Recorded Confirmed Type prenat.vits,donna,lnr-jezg-okvlf 1 tablet PO DAILY 04/11/19 12/09/21 History acetaminophen 500 mg capsule 500 mg PO Q6H PRN Pain 07/23/21 12/09/21 History diphenhydramine HCl 25 mg tablet 25 mg PO HS PRN Allergy Symptoms 07/23/21 12/09/21 History (Benadryl Allergy) hydroxychloroquine 200 mg tablet 200 mg PO BID 07/23/21 12/09/21 History ibuprofen 600 mg tablet 600 mg PO Q6H PRN Pain 07/23/21 12/09/21 History sulfasalazine 500 mg 1,500 mg PO BID 07/23/21 12/09/21 History tablet,delayed release adalimumab 40 mg/0.4 mL 40 mg subcut USEASDIRECTD 12/02/21 12/09/21 History subcutaneous pen kit (Humira(CF) Pen) escitalopram oxalate 20 mg tablet 20 mg PO HS 12/02/21 12/09/21 History Allergies Allergy/AdvReac Type Severity Reaction Status Date / Time prednisone Allergy Intermediate Rash Verified 12/09/21 11:38 Vital Signs Vital Signs - 24 hr 12/09/21 11:40 Temperature 36.6 C Pulse Rate 83 Respiratory Rate 16 Blood Pressure 133/65 Pulse Oximetry 98 Oxygen Delivery Room Air Exam Const: Orientation/consciousness: patient oriented x3 Other: Well-developed, well-nourished female in no acute distress. Neck: Thyroid: thyroid normal Lymphatic: no lymphadenopathy noted (in neck, axilla or inguinal nodes) Resp: Effort & Inspection: normal respiratory effort Auscultation: clear to auscultation bilaterally Cardio: Rate: regular rate Rhythm: regular rhythm Heart sounds: S1 normal heart sound present and S2 normal heart sound present GI: Other: ABD: Soft, nontender, nondistended. No guarding or rebound tenderness. No hepatosplenomegaly. : General: Yes no CVA tenderness Other: External genitalia: normal female hair distribution, without lesion. Urethral meatus: no lesion, non prolapsed. Bladder: no mass, nontender Vagina: well-estrogenized, without lesion or discharge. No cystocele or rectocele. Cervix: no lesion or discharge. Uterus: small, anteverted, freely mobile, nontender Adnexa: no mass or tenderness. Anus/perineum: no lesions, nontender Back/Spine/Pelvis: Back: no CVA tenderness Skin: General skin exam: normal color and no rashes or lesions noted Neuro: General: patient oriented x3 Extrem: Other: Extremities: nontender with no edema Psych: Mental Status: mental status grossly normal Affect: normal affect Assessment and Plan Assessment and plan (1) Vaginal bleeding: Code(s): N93.9
--- NOTE | 2021-12-09 12:12 | WPDHPUPDATE1 ---
History and Physical Update Update Date/Time: 12/09/21 12:12 History and Physical has been reviewed, including an updated exam of the patient. There are NO changes in the patient's condition. Risks, benefits, and alternatives have been discussed and questions answered. Patient agrees to proceed with procedure.
[2021-12-09] MEDS: ceFAZolin 2 GM/D5W 50 ML 2 GM/50 ML BAG IVPB (12:17)
--- NOTE | 2021-12-09 14:25 | W.PM.PROC2 ---
Procedure Note - Detailed Date of Procedure 12/11/21 Pre-op Diagnosis Menometrorrhagia Post-op Diagnosis Same Procedure Performed Supracervical hysterectomy with bilateral salpingectomies. Surgeon Demond Bui MD Anesthesia General Findings 3 cm simple right ovarian cyst. Otherwise, unremarkable uterus, bilateral ovaries, bilateral tubes. Dense adhesions obliterating the anterior cul de sac. Description of Procedure The patient was taken to the operating room where general anesthesia was administered. She was prepared and draped in the usual sterile fashion in dorsal supine position. She received cefazolin preoperatively. A Pfannenstiel skin incision was made along the previous scar line and was carried through to the underlying layer of the fascia. The fascia was incised in the midline and the incision was extended laterally. The fascia was dissected free of the underlying rectus muscles. The rectus muscles were in the midline. The peritoneum was identified, tented up and entered sharply. The peritoneal incision was extended superiorly and inferiorly with good visualization of the bladder. A Buckhead self retaining retractor was placed. The bowel was packed away with moist laparotomy sponges. The uterus was grasped with a single toothed tenaculum. The round ligament on the right was divided. The Fallopian tube was excised. The uteroovarian ligament was clamped, ligated and transected using Ligasure. Dissection on the left was similarly undertaken. The adhesions at the anterior cul de sac were meticulously dissected and the bladder reflected away. The broad ligament was dissected bilaterally. The uterine arteries were ligated. The uterus was amputated from the cervix and passed off to be sent to pathology. The endocervical canal was cauterized with the Bovie. The cervical stump incision was reapproximated using a running suture of 0 vicryl. The peritoneum overlying the cervix was reapproximated using figure of eight sutures of the same material. The right ovarian cyst was incised and drained of serous fluid. The pelvis was irrigated copiously with warmed normal saline. Hemaderm was applied. Rigorous hemostasis was assured. The fascial layer was reapproximated using 0 Vicryl in a running fashion. The skin was closed with a running, subcuticular stitch of 4 0 Vicryl. Dermaflex was applied externally. Sponge, lap, needle and instrument counts were correct. The patient was taken to the recovery room in stable condition. The infant went to the nursery in stable condition. I was present and scrubbed the entire procedure. Estimated Blood Loss 500 Drains Yes (norman) Packing No Pathology Yes (Uterus and bilateral Fallopian tubes) Complications None Condition Stable Disposition PACU
[2021-12-09] MEDS: ONDANSETRON INJ 4 MG/2 ML VIAL IV PUSH ×2 (14:56→16:12)
[2021-12-09] MEDS: fentaNYL CITRATE INJ (*CRX) 100 MCG/2 ML VIAL 25 MCG IV PUSH ×4 (15:06→15:37)
--- NOTE | 2021-12-09 15:55 | PC.NURSE ---
Patient transferred to post room # 283 via (bed ). Oriented to unit, room, information board, rooming in, admission packet and security measures. Patient verbalizes understanding.
[2021-12-09] MEDS: MORPHINE SULFATE (*CRX) 4 MG/ML INJ IV PUSH ×2 (16:11→19:55)
[2021-12-09] MEDS: DEXTROSE 5%/0.45% SOD CHL 1,000 ML 125 ML IV CONT (16:12)
[2021-12-09] MEDS: HYDROcodone/acetaminophen (*CRX) 10-325 MG TABLET 1 TAB PO (17:42)
[2021-12-09] MEDS: DOCUSATE SODIUM 100 MG CAPSULE PO (18:22)
[2021-12-09] MEDS: oxyCODONE HCL (*CRX) 5 MG TAB IR PO (18:47)
[2021-12-09] MEDS: oxyCODONE/ACETAMINOPHEN (*CRX) 5-325 MG TABLET 2 TABLET PO (23:16)
[2021-12-09] MEDS: ENOXAPARIN 40 MG/0.4 ML SYRINGE SUB-Q (23:17)
[2021-12-10 01:20] VITALS: BP 100/54; PULSE 92; RESP 14; TEMP 37.2; O2SAT 98
[2021-12-10] MEDS: IBUPROFEN 600 MG TABLET PO ×4 (01:31→22:49)
[2021-12-10] MEDS: DEXTROSE 5%/0.45% SOD CHL 1,000 ML 125 ML IV CONT (01:32)
[2021-12-10] MEDS: ESCITALOPRAM OXALATE 10 MG TABLET 20 MG PO ×2 (01:32→22:49)
[2021-12-10] MEDS: oxyCODONE/ACETAMINOPHEN (*CRX) 5-325 MG TABLET 2 TABLET PO ×4 (03:36→20:35)
[2021-12-10 03:48] VITALS: BP 104/57; PULSE 79; RESP 14; TEMP 37.2; O2SAT 98
[2021-12-10 05:14] LABS: Basophils Percent Auto 0.1 % (0.2-1.2); Hemoglobin 8.8 g/dL (12.0-15.0); Immature Granulocyte Absolute 0.05 K/mm3 (0.00-0.031); Immature Granulocyte Percent A 0.6 % (0-0.5); Lymphocytes Absolute Auto 1.02 K/mm3 (0.9-3.2); Mean Corpuscular HGB Conc 32.6 g/dl (32-36); Mean Corpuscular Hemoglobin 29.7 pg (26-34); Mean Corpuscular Volume 91.2 fl (80-100); Mean Platelet Volume 10.7 fl (7.4-10.4); Monocytes Absolute Auto 0.6 K/mm3 (0.1-0.6); Monocytes Percent Auto 6.9 % (2.6-8.5); Neutrophils Absolute Auto 6.9 K/mm3 (1.3-6.7); Neutrophils Percent Auto 80.4 % (45.5-73.1); Platelet Count Result 251 k/mm3 (150-375); Red Blood Count 2.96 M/mm3 (4.2-5.4); White Blood Count 8.5 K/mm3 (4.5-10.0)
--- NOTE | 2021-12-10 07:06 | P.PNAN_ITS ---
Anes - Prog Note Post-Op Date/Time: 12/10/21 07:06 Cardiovascular status: normal Respiratory status: normal Airway patency: baseline Mental status: baseline Post-Op hydration status: normal Vital Signs: Last Vital Signs Temp 37.2 C 12/10/21 03:48 Pulse 79 12/10/21 03:48 Resp 14 12/10/21 03:48 BP 104/57 L 12/10/21 03:48 Pulse Ox 98 12/10/21 03:48 O2 Del Method Room Air 12/09/21 16:20 O2 Flow Rate 6 12/09/21 14:50 Pain Score (VAS): 2 I/O: Intake & Output 12/09/21 12/09/21 12/10/21 15:59 23:59 07:59 Intake Total 350 1300 Output Total 200 100 250 Balance 150 -100 1050 Laboratory Tests 12/10/21 03:32 12/10/21 03:32 WBC 8.5 RBC 2.96 L Hgb 8.8 L D Hct 27.0 L MCV 91.2 MCH 29.7 MCHC 32.6 RDW 12.0 Plt Count 251 MPV 10.7 H Immature Gran % (Auto) 0.6 H Neut % (Auto) 80.4 H Lymph % (Auto) 12.0 L [place] % (Auto) 6.9 Eos % (Auto) 0.0 Baso % (Auto) 0.1 L Lymph # (Auto) 1.02 [place] # (Auto) 0.6 Eos # (Auto) 0.0 Baso # (Auto) 0.0 Abs Immat Gran (auto) 0.05 H Absolute Neuts (auto) 6.9 H Absolute Nucleated RBC 0.0 Nucleated RBC % 0.0 Patient Feedback: Patient satisfied with anesthetic care.
[2021-12-10 07:45] VITALS: BP 113/58; PULSE 84; RESP 18; TEMP 37; O2SAT 98
[2021-12-10] MEDS: DOCUSATE SODIUM 100 MG CAPSULE PO ×2 (08:01→20:35)
[2021-12-10] MEDS: SIMETHICONE 80 MG TAB.CHEW PO (08:06)
--- NOTE | 2021-12-10 08:52 | PM.GYNPNOP ---
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 P: Continue routine postop care. Plan home tomorrow. Postoperative Procedures: Procedures Operation Date: 12/09/21 12:00 Actual Procedure Side Surgeon p Abdominal Supracervical Hysterectomy with Bilateral Salpingectomy Bilateral Demond Bui MD Time Spent With Patient Time with patient: less than 15 minutes DIESEL LOCOMOTIVE FIRER/FIREMAN- PN:Subj Post-Op Subjective Date/time seen: 12/10/21 08:52 Interval history: Pain OK. Tolerating diet. Walker still in. Exam Narrative: AVSS I/O OK ABD soft, nontender. Incision c/d/i. EXT nontender DIESEL LOCOMOTIVE FIRER/FIREMAN - PN: Obj Data Vital Signs Vital Signs: Vital Signs - 24 hr 12/09/21 11:40 12/09/21 14:38 12/09/21 14:50 Temperature 36.6 C 36.3 C L Pulse Rate 83 65 68 Respiratory Rate 16 7 L 18 Blood Pressure 133/65 153/83 H 114/70 Pulse Oximetry 98 100 100 Oxygen Delivery Room Air Simple Face Mask Simple Face Mask Oxygen Flow Rate 6 6 12/09/21 15:05 12/09/21 15:20 12/09/21 15:35 Temperature Pulse Rate 69 92 83 Respiratory Rate 14 14 12 Blood Pressure 113/68 104/69 115/71 Pulse Oximetry 97 96 94 Oxygen Delivery Room Air Room Air Room Air Oxygen Flow Rate 12/09/21 15:44 12/09/21 16:20 12/09/21 16:20 Temperature 36.2 C L Pulse Rate 91 88 Respiratory Rate 18 16 Blood Pressure 105/71 102/66 Pulse Oximetry 98 99 Oxygen Delivery Room Air Room Air Oxygen Flow Rate 12/09/21 20:30 12/10/21 01:20 12/10/21 03:48 Temperature 36.5 C 37.2 C 37.2 C Pulse Rate 98 92 79 Respiratory Rate 14 14 14 Blood Pressure 105/57 L 100/54 L 104/57 L Pulse Oximetry 98 98 98 Oxygen Delivery Oxygen Flow Rate Intake/Output Intake/Output: Intake & Output 12/07/21 12/08/21 12/09/21 12/10/21 23:59 23:59 23:59 23:59 Intake Total 350 1300 Output Total 300 250 Balance 50 1050 Meds/Results Medications: Active Medications Generic Name Dose Route Start Last Admin Trade Name Breonna PRN Reason Stop Dose Admin Docusate Sodium 100 mg 12/09/21 17:00 12/10/21 08:01 Docusate Sodium 100 Mg Capsule PO 100 mg BID CARLOS EDUARDO Administration Enoxaparin Sodium 40 mg 12/09/21 21:00 12/09/21 23:17 Enoxaparin 40 Mg/0.4 Ml Syringe SUB-Q 40 mg DAILY@2100 CARLOS EDUARDO Administration Escitalopram Oxalate 20 mg 12/09/21 21:00 12/10/21 01:32 Escitalopram Oxalate 10 Mg Tablet PO 20 mg HS CARLOS EDUARDO Administration Dextrose/Sodium Chloride 1,000 mls @ 125 mls/hr 12/09/21 15:47 12/10/21 01:32 Dextrose 5% Sodium Chloride 0.45% IV CONT 125 mls/hr .Q8H CARLOS EDUARDO Administration Ibuprofen 600 mg 12/09/21 15:47 12/10/21 01:31 Ibuprofen 600 Mg Tablet PO 600 mg Q6H PRN Administration Cramping Morphine Sulfate 4 mg 12/09/21 15:47 12/09/21 19:55 Morphine Sulfate (*Crx) 4 Mg/Ml Inj IV PUSH 4 mg Q4H PRN Administration Pain Rated 7-10 Naloxone HCl 0.1 mg 12/09/21 15:47 Naloxone Hcl 0.4 Mg/Ml Vial IV PUSH Q2M PRN Respiratory rate less than 10 Ondansetron HCl 4 mg 12/09/21 15:47 12/09/21 16:12 Ondansetron Inj 4 Mg/2 Ml Vial IV PUSH 4 mg Q6H PRN Administration Nausea Oxycodone/Acetaminophen 2 tablet 12/09/21 18:42 12/10/21 08:01 Oxycodone/Acetaminophen (*Crx) 5-325 Mg Tablet PO 2 tablet Q4H PRN Administration Pain Rated 7-10 Simethicone 80 mg 12/09/21 15:47 12/10/21 08:06 Simethicone 80 Mg Tab.Chew PO 80 mg Q2H PRN Administration Gas Labs CBC & Chem 7: 12/10/21 03:32 Labs: Laboratory Results - last 24 hr 12/10/21 03:32 WBC 8.5 RBC 2.96 L Hgb 8.8 L D Hct 27.0 L MCV 91.2 MCH 29.7 MCHC 32.6 RDW 12.0 Plt Count 251 MPV 10.7 H Immature Gran % (Auto) 0.6 H Neut % (Auto) 80.4 H Lymph % (Auto) 12.0 L [place] % (Auto) 6.9 Eos %
[2021-12-10 12:55] VITALS: BP 102/49; PULSE 86; RESP 18; TEMP 37.2; O2SAT 99
[2021-12-10 18:20] VITALS: BP 113/65; PULSE 95; RESP 14; TEMP 37; O2SAT 98
[2021-12-10] MEDS: ENOXAPARIN 40 MG/0.4 ML SYRINGE SUB-Q (20:36)
[2021-12-11] MEDS: oxyCODONE/ACETAMINOPHEN (*CRX) 5-325 MG TABLET 2 TABLET PO ×3 (00:39→09:17)
[2021-12-11] MEDS: IBUPROFEN 600 MG TABLET PO (05:42)
[2021-12-11 08:30] VITALS: BP 101/63; PULSE 101; RESP 18; TEMP 37.7; O2SAT 94
--- NOTE | 2021-12-11 09:00 | P.PNOB_ITS ---
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 P: Home to f/u 4 weeks. Postoperative Procedures: Procedures Operation Date: 12/09/21 12:00 Actual Procedure Side Surgeon p Abdominal Supracervical Hysterectomy with Bilateral Salpingectomy Bilateral Demond Bui MD Time Spent With Patient Time with patient: less than 15 minutes COMMERCIAL RELATIONSHIP MANAGER- PN:Subj Post-Op Subjective Date/time seen: 12/11/21 09:00 Interval history: Pain OK. Tolerating diet. Voiding. Would like to go home. Exam Narrative: AVSS I/O OK ABD soft, nontender. Incision c/d/i. EXT nontender COMMERCIAL RELATIONSHIP MANAGER - PN: Obj Data Vital Signs Vital Signs: Vital Signs - 24 hr 12/10/21 12:55 12/10/21 18:20 12/10/21 10:10 Temperature 37.2 C 37.0 C Pulse Rate 86 95 Respiratory Rate 18 14 Blood Pressure 102/49 L 113/65 Pulse Oximetry 99 98 Oxygen Delivery Room Air Intake/Output Intake/Output: Intake & Output 12/08/21 12/09/21 12/10/21 12/11/21 23:59 23:59 23:59 23:59 Intake Total 350 2300 Output Total 300 1600 Balance 50 700 Meds/Results Medications: Active Medications Generic Name Dose Route Start Last Admin Trade Name Freq PRN Reason Stop Dose Admin Docusate Sodium 100 mg 12/09/21 17:00 12/10/21 20:35 Docusate Sodium 100 Mg Capsule PO 100 mg BID CARLOS EDUARDO Administration Enoxaparin Sodium 40 mg 12/09/21 21:00 12/10/21 20:36 Enoxaparin 40 Mg/0.4 Ml Syringe SUB-Q 40 mg DAILY@2100 CARLOS EDUARDO Administration Escitalopram Oxalate 20 mg 12/09/21 21:00 12/10/21 22:49 Escitalopram Oxalate 10 Mg Tablet PO 20 mg HS CARLOS EDUARDO Administration Dextrose/Sodium Chloride 1,000 mls @ 125 mls/hr 12/09/21 15:47 12/10/21 01:32 Dextrose 5% Sodium Chloride 0.45% IV CONT 125 mls/hr .Q8H CARLOS EDUARDO Administration Ibuprofen 600 mg 12/09/21 15:47 12/11/21 05:42 Ibuprofen 600 Mg Tablet PO 600 mg Q6H PRN Administration Cramping Morphine Sulfate 4 mg 12/09/21 15:47 12/09/21 19:55 Morphine Sulfate (*Crx) 4 Mg/Ml Inj IV PUSH 4 mg Q4H PRN Administration Pain Rated 7-10 Naloxone HCl 0.1 mg 12/09/21 15:47 Naloxone Hcl 0.4 Mg/Ml Vial IV PUSH Q2M PRN Respiratory rate less than 10 Ondansetron HCl 4 mg 12/09/21 15:47 12/09/21 16:12 Ondansetron Inj 4 Mg/2 Ml Vial IV PUSH 4 mg Q6H PRN Administration Nausea Oxycodone/Acetaminophen 2 tablet 12/09/21 18:42 12/11/21 05:42 Oxycodone/Acetaminophen (*Crx) 5-325 Mg Tablet PO 2 tablet Q4H PRN Administration Pain Rated 7-10 Simethicone 80 mg 12/09/21 15:47 12/10/21 08:06 Simethicone 80 Mg Tab.Chew PO 80 mg Q2H PRN Administration Gas Labs CBC & Chem 7: 12/10/21 03:32
[2021-12-11] MEDS: DOCUSATE SODIUM 100 MG CAPSULE PO (09:17)
--- NOTE | 2021-12-30 09:12 | PM.DS ---
DS: Admitting Diagnosis Discharge Date 12/11/21 Admitting Diagnosis Menometrorrhagia Pelvic pain DS: Discharge Diagnosis Discharge Diagnosis (1) Menometrorrhagia: Code(s): N92.1 - Excessive and frequent menstruation with irregular cycle Status: Acute (2) Vaginal bleeding: Code(s): N93.9 - Abnormal uterine and vaginal bleeding, unspecified Status: Acute (3) Pelvic pain: Code(s): R10.2 - Pelvic and perineal pain Status: Acute DS: Summary Hospital Course Hospital Course: She was admitted on the date of scheduled surgery. She underwent abdominal supracervical hysterectomy with bilateral salpingectomies. She did well postoperatively and went home on POD2. Time Spent with Patient Time attestation: Total time spent providing and/or coordinating discharge services: DS: Data Data Completed and Pending Completed studies during hospitalization: Pending at discharge 12/09/21 13:53 Surgical [PTH] Routine Discharge Plan Discharge Attending physician on discharge: Demond Bui Discharging Clinician: Demond Bui Patient Disposition: Home, Self-Care Activity: may shower, may drive after 2 weeks and pelvic rest Diet: regular Wound Care Instructions: incision open to air Discharge Instructions: Some Complications to Watch for: ? Excessive incisional or vaginal drainage (more than one pad an hour). Additional Instructions: ? Expect some vaginal spotting for 2-4 days. ? Nothing vaginally (i.e. douching, intercourse, tampons) until follow up visit. Per Dr. Bui, Call or return if temperature above 100.4? F, increased abdominal pain, increased vaginal bleeding or any new problems. Follow-up/Referrals: Demond Bui MD [Physician] - 4 Weeks Discharge Medications: New oxycodone-acetaminophen [Percocet] 5-325 mg tablet 1 - 2 tablet PO Q6H PRN (Reason: pain) Qty: 30 0RF ferrous sulfate 325 mg (65 mg iron) tablet 325 mg PO DAILY Qty: 30 0RF Continued prenat.vits,donna,[id number] Tablet 1 tablet PO DAILY hydroxychloroquine 200 mg tablet 200 mg PO BID sulfasalazine 500 mg Tablet,Delayed Release (Dr/Ec) 1,500 mg PO BID diphenhydramine HCl [Benadryl Allergy] 25 mg Tablet 25 mg PO HS PRN (Reason: Allergy Symptoms) escitalopram oxalate 20 mg tablet 20 mg PO HS Humira(CF) Pen 40 mg/0.4 mL pen injector kit 40 mg SUBCUT USEASDIRECTD Rx Instructions: Twice monthly ibuprofen 600 mg tablet 600 mg PO Q6H PRN (Reason: Cramps) Qty: 30 0RF Discontinued acetaminophen 500 mg Capsule 500 mg PO Q6H PRN (Reason: Pain) Date of admission: 12/09/21 14:23 Primary Care Provider: Veena,Amadou Kuhn Admitting Provider: Demond Bui Attending physician on admission: Demond Bui Condition: Stable
== END 2021-12-11 12:35 | disposition home or self-care (01) | DRG 743 ==
LOC: ANHOB2 12-10 13:04
PROVIDERS: Admitting Provider Obstetrics & Gynecology; PCP Family Medicine; Visit Provider Obstetrics & Gynecology
PROC: 0UT94ZZ Resection of Uterus, Percutaneous Endoscopic Approach (ICD-10-PCS; principal; 2021-12-09 12:00)
DX: N92.1 Excessive and frequent menstruation with irregular cycle (principal); N83.291 Other ovarian cyst, right side; M06.9 Rheumatoid arthritis, unspecified; M41.9 Scoliosis, unspecified; F41.9 Anxiety disorder, unspecified
CPT/HCPCS: 36415; 85025; 88307; A9270; J0690; J1100; J1650; J1885; J2250; J2270; J2370; J2405; J2704; J2710; J3010; J7120

== ENCOUNTER 2023-09-10 17:12 | Observation (INO) | payer OTHER, SELFPAY ==
--- NOTE | ~2023-09-10 | US_ITS ---
EXAMINATION: US pelvic complete w TV DATE: 09/11/2023 10:58 INDICATION: Ovarian cyst Comparison:09/27/2021 TECHNIQUE: Multiple transabdominal and endovaginal sonographic images of the pelvis performed. FINDINGS: The uterus is surgically absent. The right ovary measures 7.6 x 7.6 x 6.6 cm and the left ovary measures 4.1 x 2.2 x 2.3 cm. There are bilateral cysts of the ovaries measuring up to 5.7 cm in the right ovary and 2.2 cm and the left ova ry. There are small follicles in each ovary. Normal doppler signal in both ovaries. There is free fluid in the pelvis. There are no abnormal masses seen on either side. IMPRESSION: 1. Bilateral ovarian cysts, largest on the right measuring 5.7 cm. Reviewed, dictated and finalized at location B.
[2023-09-10 16:50] VITALS: BP 123/72; PULSE 92; RESP 14; TEMP 36.2; O2SAT 99
--- NOTE | 2023-09-10 17:01 | ADMGEN ---
This patient, Lila Morel, was admitted to [facility] Surg Room 312-01. Patient/family oriented to hospital policies and general routines including ID bracelet, bed and alarms, visiting hours, pain management, procedures, bathroom and other care routines, personal items, smoking policy, room service/diet, and visiting hours. Information on how to activate the Rapid Response Team has been discussed. Patient/Family are encouraged to report perceived risks to care and to ask questions if they do not understand what they are told or what they should do.
[2023-09-10] MEDS: DEXTROSE 5%/0.45% SOD CHL 1,000 ML 125 ML IV CONT (18:30)
[2023-09-10] MEDS: MORPHINE SULFATE PCA (*CRX) 30 MG/30 ML SYR IV CONT (19:01)
[2023-09-10] MEDS: ONDANSETRON INJ 4 MG/2 ML VIAL IV PUSH (20:36)
[2023-09-10] MEDS: IBUPROFEN IV 800 MG/200 ML 800 MG/200 ML BAG 400 MG IVPB (20:40)
[2023-09-10 20:43] VITALS: BP 124/86; PULSE 88; RESP 16; TEMP 36.8; O2SAT 100
[2023-09-10 21:00] VITALS: RESP 16; O2SAT 94
[2023-09-10 23:00] VITALS: RESP 16; O2SAT 92
[2023-09-11] VITALS (14 sets, daily range): BP systolic 100–121; BP diastolic 49–80; PULSE 68–88; RESP 8–18; TEMP 36.1–37; O2SAT 92–100; BMI 26.6
[2023-09-11] MEDS: PROMETHAZINE HCL 25 MG/ML AMPUL 12.5 MG IV PUSH ×2 (00:31→09:58)
[2023-09-11] MEDS: IBUPROFEN IV 800 MG/200 ML 800 MG/200 ML BAG 400 MG IVPB ×2 (05:23→12:42)
[2023-09-11] MEDS: ONDANSETRON INJ 4 MG/2 ML VIAL IV PUSH ×2 (05:24→12:45)
[2023-09-11 06:04] LABS: Hematocrit 41.2 % (37.0-47.0); Hemoglobin 13.2 g/dL (12.0-15.0); Mean Corpuscular Hemoglobin 30.1 pg (26-34); Mean Corpuscular Volume 94.1 fl (80-100); Mean Platelet Volume 9.9 fl (7.4-10.4); Platelet Count Result 307 k/mm3 (150-375); Red Blood Count 4.38 M/mm3 (4.2-5.4); Red Cell Distribution Width 12.5 % (11.5-14.5); White Blood Count 11.8 K/mm3 (4.5-10.0)
[2023-09-11] MEDS: DEXTROSE 5%/0.45% SOD CHL 1,000 ML 125 ML IV CONT (06:47)
[2023-09-11] MEDS: MORPHINE SULFATE PCA (*CRX) 30 MG/30 ML SYR IV CONT (07:59)
--- NOTE | 2023-09-11 13:14 | PM.IMHP ---
H&P: HPI History of Present Illness Date/Time: 09/11/23 13:14 Chief Complaint: Pain Narrative: 37 y/o female who has had a supracervical hysterectomy. She had 2 weeks of pelvic fulness and general abdominal discomfort. Yesterday she had diarrhea, vomiting, and a near syncope episode, and her called the ambulance. She was taken to [facility], where a CT showed normal appendix, but right ovarian cyst was seen. Ultrasound showed a 5.7 cm simple appearing right ovarian cyst, and normal doppler flow to both adnexa was seen. Pain was intractable, and the hospital had no [facility]DER service, so she was sent here. 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 Repeat ultrasound showed similar results. We had a long talk and I offered to transition her to oral pain meds and observe, hoping to avoid surgery. The patient prefers laparoscopic evaluation and treatment. Review of Systems Review of Systems: All systems reviewed & are unremarkable except as noted in HPI and below PMFSH Past Medical History Medical History (Updated 09/11/23 @ 13:19 by Demond Bui MD) Anxiety Post depression Rheumatoid arthritis Scoliosis Surgical History Surgical History History of 2017 and 2018 History of endometrial ablation History of hysterectomy, supracervical History of tonsillectomy and adenoidectomy History of wisdom tooth extraction 2017 Family History Family History Mother Depression Hypertension Sibling Depression Father Family history of lung cancer Depression Grandparent Family history of coronary artery disease Family history of malignant neoplasm of brain Family history of cardiovascular disease Social History Social History Smoking status: Never smoker Second hand tobacco smoke exposure: No Alcohol intake: former Substance use: never Substance use type: does not use Do You Feel Safe in your Home?: Yes Lack of Transportation: No Lack of Food: Never True Current Housing: I Have Housing Concerned About Future Housing: No Difficulty Paying Gas/Electric Bills: No Difficulty Paying for Meds: No Currently Unemployed: No Education: Associate Degree Difficulty w/ Childcare or Family Care: No Living arrangements: with family Spiritual care concerns: No Meds Home Medications and Allergies Home Medications Medication Instructions Recorded Confirmed Type diphenhydramine HCl 25 mg tablet 25 mg PO HS PRN Allergy Symptoms 07/23/21 09/10/23 History (Benadryl Allergy) hydroxychloroquine 200 mg tablet 200 mg PO BID 07/23/21 09/10/23 History adalimumab 40 mg/0.4 mL 0.4 mg subcut USEASDIRECTD 12/02/21 09/10/23 History subcutaneous pen kit (Humira(CF) Pen) escitalopram oxalate 20 mg tablet 40 mg PO HS 12/02/21 09/10/23 History spironolactone 50 mg tablet 50 mg PO BID 09/10/23 09/10/23 History Allergies Allergy/AdvReac Type Severity Reaction Status Date / Time No Known Allergies Allergy Verified 09/10/23 17:15 Vital Signs Vital Signs - 24 hr 09/10/23 16:50 09/10/23 18:47 09/10/23 20:43 Temperature 36.2 C L 36.8 C Pulse Rate 92 88 Respiratory Rate 14 16 Blood Pressure 123/72 124/86 Pulse Oximetry 99 100 Oxygen Delivery Room Air 09/10/23 20:00 09/10/23 21:00 09/10/23 23:00 Temperature Pulse Rate Respiratory Rate 16 16 Blood Pressure Pulse Oximetry 94 92 Oxygen Delivery Room Air 09/11/23 04:42 09/11/23 04:50 09/11/23 05:57 Temperature 36.1 C L Pulse Rate 68 Respiratory Rate 14 16 18 Blood Pressure 117/71 Pulse Oximetry 95 100 94 Oxygen Delivery 09/11/23 07:59 09/11/23 08:00 Temperature Pulse Rate Respiratory Rate Blood Pressure Pulse Oximetry 96 Oxygen Delivery Jessica
--- NOTE | 2023-09-11 13:21 | WPDHPUPDATE1 ---
History and Physical Update Update Date/Time: 09/11/23 13:21 History and Physical has been reviewed, including an updated exam of the patient. There are NO changes in the patient's condition. Risks, benefits, and alternatives have been discussed and questions answered. Patient agrees to proceed with procedure.
--- NOTE | 2023-09-11 14:11 | WPDANESEPPF ---
Anes - Initial Pre Proc Eval Procedure: Operation Date: 09/11/23 15:00 Proposed Procedures p Laparoscopic Right Ovarian Cystectomy, Possible Right Oophorectomy - Demond Bui MD Date/Time: 09/11/23 14:11 Surgeon: Demond Bui MD Pre Op Diagnosis: Ovarian Cyst Patient Data Age: 37 Gender: F Height: 1.6 m Weight: 68.4 kg Last Vital Signs Temp 97 F L 09/11/23 04:50 Pulse 68 09/11/23 04:50 Resp 18 09/11/23 05:57 BP 117/71 09/11/23 04:50 Pulse Ox 96 09/11/23 07:59 O2 Del Method Room Air 09/11/23 08:00 Allergies Allergy/AdvReac Type Severity Reaction Status Date / Time No Known Allergies Allergy Verified 09/11/23 14:10 Home Medications Medication Instructions Recorded Confirmed Type diphenhydramine HCl 25 mg tablet 25 mg PO HS PRN Allergy Symptoms 07/23/21 09/10/23 History (Benadryl Allergy) hydroxychloroquine 200 mg tablet 200 mg PO BID 07/23/21 09/10/23 History adalimumab 40 mg/0.4 mL 0.4 mg subcut USEASDIRECTD 12/02/21 09/10/23 History subcutaneous pen kit (Humira(CF) Pen) escitalopram oxalate 20 mg tablet 40 mg PO HS 12/02/21 09/10/23 History spironolactone 50 mg tablet 50 mg PO BID 09/10/23 09/10/23 History Laboratory Tests 09/11/23 05:52 WBC 11.8 H K/mm3 (4.5-10.0) RBC 4.38 M/mm3 (4.2-5.4) Hgb 13.2 D g/dL (12.0-15.0) Hct 41.2 % (37.0-47.0) MCV 94.1 fl (80-100) MCH 30.1 pg (26-34) MCHC 32.0 g/dl (32-36) RDW 12.5 % (11.5-14.5) Plt Count 307 k/mm3 (150-375) MPV 9.9 fl (7.4-10.4) Patient hx anesthesia problems: post op nausea/vomiting Family hx anesthesia problems: none Results Review: All pre-operative results and documents have been reviewed as part of the pre-operative evaluation. [facility] Past Medical History Medical History (Updated 09/11/23 @ 13:19 by Demond Bui MD) Anxiety Post depression Rheumatoid arthritis Scoliosis Surgical History Surgical History History of 2017 and 2018 History of endometrial ablation History of hysterectomy, supracervical History of tonsillectomy and adenoidectomy History of wisdom tooth extraction 2017 Family History Family History Mother Depression Hypertension Sibling Depression Father Family history of lung cancer Depression Grandparent Family history of coronary artery disease Family history of malignant neoplasm of brain Family history of cardiovascular disease Social History Social History Smoking status: Never smoker Second hand tobacco smoke exposure: No Alcohol intake: former Substance use: never Substance use type: does not use Do You Feel Safe in your Home?: Yes Lack of Transportation: No Lack of Food: Never True Current Housing: I Have Housing Concerned About Future Housing: No Difficulty Paying Gas/Electric Bills: No Difficulty Paying for Meds: No Currently Unemployed: No Education: Associate Degree Difficulty w/ Childcare or Family Care: No Living arrangements: with family Spiritual care concerns: No Anes - Eval Final PreProcedure Day of Procedure 09/11/23 14:11 Patient weight: normal Heart: regular rate and rhythm Lungs: clear to auscultation Airway: Mallampati scale class II Neurological: alert and oriented Last oral intake: >/= 8 hours ASA classification: III Emergent: no Anesthetic plan: proceed Anesthesia type and monitoring: general ETT and standard monitoring Results Review: All pre-operative results and documents have been reviewed as part of the pre-operative evaluation. Informed Consent: The patient's anesthetic plan and its attendant risks and benefits were discussed with the patient/family/POA. Questions were solicited and answers provided to the satisfacti
[2023-09-11] MEDS: SCOPOLAMINE 1 MG PATCH 1 PATCH TRANSDERM (14:13)
[2023-09-11] MEDS: LACTATED RINGERS 1,000 ML 30 ML IV CONT (14:14)
--- NOTE | 2023-09-11 15:55 | P.OP_ITS ---
Procedure Note - Detailed Date of Procedure 09/14/23 Pre-op Diagnosis Ovarian Cyst Pelvic pain Post-op Diagnosis Same Procedure Performed Laparoscopic right oophorectomy Surgeon Demond Bui MD Anesthesia General Findings Omentum was adherent to the anterior abdominal/pelvic wall. The right ovary was enlarged and possible torsed. Uterus surgically absent. Left adnexa obscured by adhesions. Description of Procedure The patient was taken to the operating room where general endotracheal anesthesia was administered. She was prepared and draped in the usual sterile fashion in the dorsal lithotomy position. The bladder was drained with a red rubber catheter. Gloves were changed and attention was turned to the abdomen. An infraumbilical skin incision was made with a scalpel. The abdomen was tented and a 5 millimeter bladeless trocar trocar was advanced under direct laparoscopic visualization. Pneumoperitoneum was administered using carbon dioxide gas. A survey of the pelvis and abdomen yielded the findings noted above. A second 5 mm port was advanced in the right lower quadrant under direct visualization. Endoshears were used to lyse omental adhesions to improve visualization. An 11 mm port was advanced in the LLQ. The ureter was v isualized on the right. The right infundibulopelvic ligament was ligated and transected using Ligasure. The endobag was advanced and the specimen passed off the field. The pelvis was irrigated copiously with warmed, normal saline. Hemostasis was excellent. The LLQ fascia was reapproximated with a single interrupted suture of 0 Vicryl using the Jean-Claude cone. The trocars were withdrawn and the gas was allowed to escape. The skin incisions were reapproximated using 4-0 Vicryl in interrupted subcuticular fashion. Dermaflex was applied externally. Sponge, lap, needle and instrument counts were correct. The patient was awakened and taken to recovery in stable condition. I was present and scrubbed through the entire procedure. Implants None Estimated Blood Loss 25 Urine Output 0 Drains No Packing No Pathology Yes (Right ovary) Complications None Condition Stable Disposition PACU
[2023-09-11] MEDS: fentaNYL CITRATE INJ (*CRX) 100 MCG/2 ML VIAL 25 MCG IV PUSH ×2 (16:40→16:43)
--- NOTE | 2023-09-11 17:57 | PC.NURSE ---
patient returned at 1720, d/c orders in. Ok per Dr Bui to d/c without eating first. IV's out, patients d/c papers signed, denies any questions. will leave by private car with . B[employer] pump d/c'd, pharmacy aware.
--- NOTE | 2023-10-05 11:28 | P.DS_ITS ---
DS: Admitting Diagnosis Discharge Date 09/11/23 Admitting Diagnosis Pain DS: Discharge Diagnosis Discharge Diagnosis (1) Adnexal pain: Code(s): R10.2 - Pelvic and perineal pain Status: Acute DS: Summary Hospital Course Hospital Course: Was transferred from outside hospital for abdominal pain and an adnexal cyst. She underwent laparoscopic right oophorectomy and torsion was noted. Postoperatively she felt much better and went home on the day of surgery. Time Spent with Patient Time attestation: Total time spent providing and/or coordinating discharge services: DS: Data Data Completed and Pending Completed studies during hospitalization: Pending at discharge 09/11/23 15:37 Surgical [PTH] Routine Pending studies at discharge: Pending at discharge 09/11/23 15:31 Surgical [PTH] Routine Discharge Plan Discharge Attending physician on discharge: Demond Bui Consulting providers: Mikey Li; Gus Orantes Discharging Clinician: Demond Bui Patient Disposition: Home, Self-Care Activity: pelvic rest Diet: regular Wound Care Instructions: incision open to air Discharge Instructions: Call or return if temperature above 100.4? F, increased abdominal pain, increa sed vaginal bleeding or any new problems. Stand Alone Forms: General Discharge Information Follow-up/Referrals: Demond Bui MD [Physician] - 2 Weeks Discharge Medications: New oxycodone-acetaminophen [Percocet] 5-325 mg tablet 1 - 2 tablet PO Q6H PRN (Reason: pain) Qty: 30 0RF Continued hydroxychloroquine 200 mg tablet 200 mg PO BID diphenhydramine HCl [Benadryl Allergy] 25 mg Tablet 25 mg PO HS PRN (Reason: Allergy Symptoms) escitalopram oxalate 20 mg tablet 40 mg PO HS Humira(CF) Pen 40 mg/0.4 mL pen injector kit 0.4 mg SUBCUT USEASDIRECTD Rx Instructions: Twice monthly spironolactone 50 mg tablet 50 mg PO BID Date of admission: 09/10/23 17:12 Primary Care Provider: VeenaAmadou Admitting Provider: Demond Bui Attending physician on admission: Demond Bui Condition: Stable
== END 2023-09-11 18:20 | disposition home or self-care (01) ==
PROVIDERS: Admitting Provider Obstetrics & Gynecology; PCP Family Medicine; Visit Provider Obstetrics & Gynecology
PROC: (CPT 49320; principal; 2023-09-11 15:00)
DX: N83.511 Torsion of right ovary and ovarian pedicle (principal); Z90.711 Acquired absence of uterus with remaining cervical stump; M06.9 Rheumatoid arthritis, unspecified; F41.9 Anxiety disorder, unspecified; Z79.620 Long term (current) use of immunosuppressive biologic
CPT/HCPCS: 58661; 36415; 76830; 76856; 85027; 88304; 96365; 96366; 96368; 96375; 96376; A9270; G0378; G0379; J1741; J2250; J2270; J2405; J2550; J3010; J7120

== ENCOUNTER 2025-03-11 | Emergency (ER) | payer OTHER, SELFPAY ==
[2025-03-11] VITALS (18 sets, daily range): BP systolic 124–161; BP diastolic 75–108; PULSE 81–116; RESP 10–22; TEMP 36.6; O2SAT 94–100
--- NOTE | ~2025-03-11 | CT_ITS ---
CHEST ABDOMEN PELVIS WITH CONTRAST CLINICAL HISTORY: hematemesis, N/V . COMPARISON: CT abdomen pelvis 09/27/2021 TECHNIQUE: Helical CT performed from thoracic inlet to symphysis pubis 100 mL Omnipaque 350 Coronal, sagittal reformats. Multi planar MIPS CT images acquired with automatic exposure control for dose reduction DLP: 778 mGy-cm FINDINGS: CHEST- Lungs/Pleura: Clear. Thoracic Aorta: No dissection. No aneurysm. Pulmonary arteries: Normal caliber. Heart: Unremarkable. Tracheobronchial tree: Patent. Nodes: No enlarged nodes. Bones: No acute bony abnormality. Soft tissues: Mild oral contrast within esophagus. ABDOMEN/PELVIS- Liver: Steatosis. Gallbladder: Unremarkable. Spleen: Unremarkable. Pancreas: Unremarkable. Adrenal glands: Unremarkable. Kidneys: Right kidney- No hydronephrosis. No renal stones. Duplicated collecting system. Left kidney- No hydronephrosis. No renal stones. Duplicated collecting system. Distal esophagus/stomach: Small hiatal hernia. Small bowel loops: Normal caliber and wall thickness. Colon: Apparent wall thickening distally but under distended. Normal RLQ appendix. Nodes: No enlarged nodes. Peritoneum: No ascites. No free air. Urinary bladder: Unremarkable. Uterus: Removed. Adnexa: No masses. Bones: No acute bony abnormality. Soft tissues: Unremarkable. Aorta: No aneurysm or dissection. IVC: Unremarkable. Main portal vein/SMV/splenic vein: Patent. IMPRESSION: CHEST- 1. No acute findings. ABDOMEN/PELVIS- 1. Mild colitis not excluded. Reviewed, dictated and finalized at location R.
--- NOTE | 2025-03-11 00:14 | PC.NURSE ---
Per pt took zofran about an hour ago, pain worsens with movement.
[2025-03-11] MEDS: SODIUM CHLORIDE 0.9% IV 1,000 ML 999 ML IV CONT ×2 (00:34→06:03)
[2025-03-11 00:49] LABS: Hematocrit 43.3 % (37.0-47.0); Hemoglobin 14.7 g/dL (12.0-15.0); Immature Granulocyte Percent A 0.4 % (0-0.5); Lymphocytes Absolute Auto 2.80 K/mm3 (0.9-3.2); Mean Corpuscular HGB Conc 33.9 g/dl (32-36); Mean Corpuscular Hemoglobin 29.8 pg (26-34); Mean Corpuscular Volume 87.7 fl (80-100); Nucleated Red Blood Cells Absolute Auto 0.000 K/mm3 (0.0-0.012); Nucleated Red Blood Cells Perc 0.0 % (0.0-0.2); Platelet Count Result 388 k/mm3 (150-375); Red Blood Count 4.94 M/mm3 (4.2-5.4); White Blood Count 14.7 K/mm3 (4.5-10.0)
--- NOTE | 2025-03-11 00:50 | ED_ITS ---
HPI - Nausea/Vomiting/Diarrhea General Chief complaint: Nausea/Vomiting/Diarrhea <NIEVES Durham Last Filed: 03/11/25 03:22> Stated complaint: vomiting <NIEVES Durham Last Filed: 03/11/25 03:22> Time Seen by Provider: 03/11/25 00:09 <NIEVES Durham Last Filed: 03/11/25 03:22> Source: patient <NIEVES Durham Last Filed: 03/11/25 03:22> Mode of arrival: ambulatory <NIEVES Durham Last Filed: 03/11/25 03:22> Limitations: no limitations <NIEVES Durham Last Filed: 03/11/25 03:22> History of Present Illness HPI Narrative: Patient is a 39-year-old female who presents the ED with report of nausea, vomiting. Patient reports she has had persistent nausea and vomiting since around 3:00 p.m. today. Has been unable to keep down any food or drink. Has noticed some bright red blood in her emesis, streaks and clots in her emesis. States she now feels as though something is stuck in her throat. States she is not able to pass any food or drink past her upper throat. C/o discomfort in her upper throat. Denies significant abdominal pain. Did have 1 episode of diarrhea which has resolved. Denies sick contacts or family members with similar sx's. Denies fevers. Denies SOB. <NIEVES Durham Last Filed: 03/11/25 03:22> Related Data Home medications: Home Medications ?Medication ?Instructions ?Recorded ?Confirmed ?Last Taken ?Type diphenhydramine HCl 25 mg tablet 25 mg PO HS PRN Aller gy Symptoms 07/23/21 09/05/24 08/26/21 History (Benadryl Allergy) hydroxychloroquine 200 mg tablet 200 mg PO BID 2 09/05/24 12/02/21 History adalimumab 40 mg/0.4 mL 0.4 mg subcut USEASDIRECTD 0 12/02/21 09/05/24 12/02/21 History subcutaneous pen kit (Humira(CF) Pen) escitalopram oxalate 20 mg tablet 40 mg PO HS 12/02/21 09/05/24 12/02/21 History spironolactone 50 mg tablet 50 mg PO BID 09/10/2308/10 Unknown History gabapentin 100 mg capsule 100 mg PO DAILY 09/05/24 Unknown History <Jackelin Talavera PA-C - Last Filed: 03/11/25 03:22> Allergies/Adverse reactions: Allergies Allergy/AdvReac Type Severity Reaction Status Date / Time No Known Allergies Allergy Verified 03/11/25 00:01 <Jackelin Talavera PA-C - Last Filed: 03/11/25 03:22> Review of Systems 2 Review of Systems: All systems reviewed & are unremarkable except as noted in HPI. <Jackelin Talavera PA-C - Last Filed: 03/11/25 03:22> All systems reviewed & are unremarkable except as noted in HPI and below < Jackelin Talavera PA-C - Last Filed: 03/11/25 03:22> [facility] Past Medical History Medical History: Medical History BMI 28.0-28.9,adult Skin neoplasm Compound nevus Scoliosis Rheumatoid arthritis Post depression Anxiety <Jackelin Talavera PA-C - Last Filed: 03/11/25 03:22> Surgical History Surgical History: Surgical History Hx of tonsillectomy H/O rhinoplasty History of hysterectomy, supracervical History of endometrial ablation History of tonsillectomy and adenoidectomy History of 2017 and 2018 History of wisdom tooth extraction 2016 <Jackelin Talavera PA-C - Last Filed: 03/11/25 03:22> Family History Family History: Family History Mother Depression Hypertension Sibling Depression Father Family history of lung cancer Depression Dementia Grandparent Family history of coronary artery disease Family history of malignant neoplasm of brain Family history of cardiovascular disease Daughter Cerebrovascular accident <Jackelin Talavera PA-C - Last Filed: 03/11/25 03:22> Social History Social History: Social History Smoking status: Never smoker Second hand tobacco smoke exposure: Yes Alcohol intake: current Substance use: never Substance use type: does not use Do You Feel Safe in your Home?: Yes Lack of Transportation: No Lack of Food: Never True Current Housing: I Have Housing Concerned About Future Housing: No Difficulty Paying Gas/Electric Bills: No Difficulty Paying for Meds: No Currently Unemployed: No Education: Associate Degree Difficulty w/ Childcare or Family Care: No Living arrangements: with family 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 HEAD: Normocephalic, atraumatic. ENT: Hoarse quality to voice, frequent coughing and attempting to clear throat. No stridor. No trismus. RESPIRATORY: Airway patent, respirations nonlabored. Clear to auscultation bilaterally, no rales, rhonchi, wheezing. No distress. CARDIOVASCULAR: Regular rate and rhythm without murmurs, rubs, or gallops. ABDOMINAL: Soft, minimal diffuse tenderness, nondistended. Normoactive BS. MUSCULOSKELETAL: Moves all extremities. No gross deformities. SKIN: Warm, dry, normal color. NEURO: A&O X3. Speech clear. Cranial nerves II-XII grossly intact. Steady gait. No ataxic movements. PSYCHIATRIC: Appropriate mood and affect. Normal interaction. <Jackelin Talavera PA-C - Last Filed: 03/11/25 03:22> Course Course Emergency Course: Patient care signed over by previous provider pending results of CT scan and re-evaluation. Patient did require additional doses of medications for some residual nausea and headache with improvement. Her CT scan with contrast both orally and IV of the chest abdomen pelvis was reviewed independently and also interpreted by Radiology. Unremarkable CT of the chest in unremarkable findings in the abdomen pelvis. She has some bilateral fat containing inguinal hernias and a small hiatal hernia otherwise no significant findings. No evidence of extravasation of contrast or oral contrast. No signs of Boerhaave syndrome. I discussed this with the patient and she informed me that she was having a sore and raw throat for last few weeks secondary to strep and this was made worse by her repeated vomiting today. She felt improved but I offered her admission for observation for continued pain and nausea control but she politely declined and after shared decision-making would like to go home with some medications to try. Offered her some prescriptions for Pepcid as well as sucralfate to help coat the esophagus and stomach to see if that helps her symptoms as well as some Reglan for nausea control. Patient was given strict return precautions and safe for discharge home at this time with return precautions and follow-up instructions. <Osmar Loredo MD - Last Filed: 03/11/25 06:43> Vital Signs Vital signs: Vital Signs Temperature 36.6 C 03/11/25 00:05 Pulse Rate 91 03/11/25 00:05 Respiratory Rate 16 03/11/25 00:05 Blood Pressure 161/104 H 03/11/25 00:05 Pulse Oximetry 96 03/11/25 00:05 Oxygen Delivery Room Air 03/11/25 00:05 Temperature 36.6 C 03/11/25 00:05 Pulse Rate 97 03/11/25 06:13 Respiratory Rate 18 03/11/25 06:13 Blood Pressure 128/91 H 03/11/25 06:13 Pulse Oximetry 94 03/11/25 06:13 Oxygen Delivery Room Air 03/11/25 00:05 <Jackelin Talavera PA-C - Last Filed: 03/11/25 03:22> Vital Signs Temperature 36.6 C 03/11/25 00:05 Pulse Rate 91 03/11/25 00:05 Respiratory Rate 16 03/11/25 00:05 Blood Pressure 161/104 H 03/11/25 00:05 Pulse Oximetry 96 03/11/25 00:05 Oxygen Delivery Room Air 03/11/25 00:05 Temperature 36.6 C 03/11/25 00:05 Pulse Rate 97 03/11/25 06:13 Respiratory Rate 18 03/11/25 06:13 Blood Pressure 128/91 H 03/11/25 06:13 Pulse Oximetry 94 03/11/25 06:13 Oxygen Delivery Room Air 03/11/25 00:05 <Osmar Loredo MD - Last Filed: 03/11/25 06:43> MDM - Nausea/Vomiting/Diarrhea MDM Narrative Medical decision making narrative: Patient presented to ED with profuse nausea, vomiting, now with hematemesis, sensation of something stuck in her throat, hoarse/garbled voice. No signs of airway compromise or respiratory distress. Oxygen stable on room air. Patient is mildly uncomfortable appearing. Laboratory studies with leukocytosis of 14.7. CMP is fairly unremarkable. Stable electrolytes. Stable kidney function. UA is clear. Lactic acid pending. CT scan of chest/abdomen/pelvis w/ oral contrast was obtained to rule out intra-abdominal pathology versus potential Lori-Michael syndrome/esophageal perf. Care signed out to Dr. Loredo at shift change pending STAT RAD imaging results. <Jackelin Talavera PA-C - Last Filed: 03/11/25 03:22> Medical Records Attestation: I reviewed the patient's medical records. <Jackelin Talavera PA-C - Last Filed: 03/11/25 03:22> Lab Data Attestation: I reviewed the patient's lab results. <Jackelin Talavera PA-C - Last Filed: 03/11/25 03:22> Result diagrams: 03/11/25 00:35 03/11/25 00:35 <NIEVES Durham Last Filed: 03/11/25 03:22> Labs: Lab Results 03/11/25 03/11/25 03/11/25 Range/Units 00:35 00:36 04:58 WBC 14.7 H (4.5-10.0) K/mm3 RBC 4.94 (4.2-5.4) M/mm3 Hgb 14.7 (12.0-15.0) g/dL Hct 43.3 (37.0-47.0) % MCV 87.7 (80-100) fl MCH 29.8 (26-34) pg MCHC 33.9 (32-36) g/dl RDW 11.7 (11.5-14.5) % Plt Count 388 H (150-375) k/mm3 MPV 9.6 (7.4-10.4) fl Immature Gran % (Auto) 0.4 (0-0.5) % Neut % (Auto) 72.5 (45.5-73.1) % Lymph % (Auto) 19.1 (18.3-44.2) % Sunflower % (Auto) 6.1 (2.6-8.5) % Eos % (Auto) 1.4 (0-4.4) % Baso % (Auto) 0.5 (0.2-1.2) % Lymph # (Auto) 2.80 (0.9-3.2) K/mm3 Sunflower # (Auto) 0.9 H (0.1-0.6) K/mm3 Eos # (Auto) 0.2 (0-0.3) K/mm3 Baso # (Auto) 0.1 (0.0-0.1) K/mm3 Abs Immat Gran (auto) 0.06 H (0.00-0.031) K/mm3 Absolute Neuts (auto) 10.6 H (1.3-6.7) K/mm3 Absolute Nucleated RBC 0.000 (0.0-0.012) K/mm3 Nucleated RBC % 0.0 (0.0-0.2) % Sodium 141 (137-145) mmol/L Potassium 4.1 (3.4-5.0) mmol/L Chloride 99 (98-107) mmol/L Carbon Dioxide 31 H (22-30) mmol/L Anion Gap 11 (4-12) mmol/L BUN 13 (7-17) mg/dL Creatinine 0.72 (0.7-1.0) mg/dL Estim Creat Clear Calc 85 ml/min Estimated GFR > 60 (59 - ) Glucose 123 H (65-110) mg/dL Lactic Acid 1.9 (0.7-2.0) mmol/L Calcium 10.2 (8.4-10.2) mg/dL Total Bilirubin 0.6 (0.2-1.3) mg/dL AST 34 (14-36) U/L ALT 27 (6-35) U/L Alkaline Phosphatase 110 (38-126) U/L Total Protein 9.1 H (6.3-8.2) g/dL Albumin 4.9 (3.5-5.1) g/dL Lipase 93 (23-300) U/L Urine Color Yellow (Yellow) Urine Appearance Clear (Clear) Urine pH 6.5 (5.0-9.0) Ur Specific [place] 1.017 (1.001-1.035) Urine Protein Trace (Negative) mg/dL Urine Glucose (UA) Negative (Negative) mg/dL Urine Ketones Negative (Negative) mg/dL Ur Blood (Man) Negative (Negative) Urine Nitrate Negative (Negative) Urine Bilirubin Negative (Negative) Urine Urobilinogen 0.2 (<2.0) mg/dL Leukocyte Esterase Rfl Negative (Negative) LEATHA/UL Urine RBC 0-2 (0-2) /hpf Urine WBC 0-5 (0-3) /hpf Ur Squamous Epith Cells Occasional (Few) /hpf Urine Bacteria None seen /hpf Urine Casts 0-2 <Jackelin Talavera PA-C - Last Filed: 03/11/25 03:22> Lab Results 03/11/25 03/11/25 03/11/25 Range/Units 00:35 00:36 04:58 WBC 14.7 H (4.5-10.0) K/mm3 RBC 4.94 (4.2-5.4) M/mm3 Hgb 14.7 (12.0-15.0) g/dL Hct 43.3 (37.0-47.0) % MCV 87.7 (80-100) fl MCH 29.8 (26-34) pg MCHC 33.9 (32-36) g/dl RDW 11.7 (11.5-14.5) % Plt Count 388 H (150-375) k/mm3 MPV 9.6 (7.4-10.4) fl Immature Gran % (Auto) 0.4 (0-0.5) % Neut % (Auto) 72.5 (45.5-73.1) % Lymph % (Auto) 19.1 (18.3-44.2) % Sunflower % (Auto) 6.1 (2.6-8.5) % Eos % (Auto) 1.4 (0-4.4) % Baso % (Auto) 0.5 (0.2-1.2) % Lymph # (Auto) 2.80 (0.9-3.2) K/mm3 Sunflower # (Auto) 0.9 H (0.1-0.6) K/mm3 Eos # (Auto) 0.2 (0-0.3) K/mm3 Baso # (Auto) 0.1 (0.0-0.1) K/mm3 Abs Immat Gran (auto) 0.06 H (0.00-0.031) K/mm3 Absolute Neuts (auto) 10.6 H (1.3-6.7) K/mm3 Absolute Nucleated RBC 0.000 (0.0-0.012) K/mm3 Nucleated RBC % 0.0 (0.0-0.2) % Sodium 141 (137-145) mmol/L Potassium 4.1 (3.4-5.0) mmol/L Chloride 99 (98-107) mmol/L Carbon Dioxide 31 H (22-30) mmol/L Anion Gap 11 (4-12) mmol/L BUN 13 (7-17) mg/dL Creatinine 0.72 (0.7-1.0) mg/dL Estim Creat Clear Calc 85 ml/min Estimated GFR > 60 (59 - ) Glucose 123 H (65-110) mg/dL Lactic Acid 1.9 (0.7-2.0) mmol/L Calcium 10.2 (8.4-10.2) mg/dL Total Bilirubin 0.6 (0.2-1.3) mg/dL AST 34 (14-36) U/L ALT 27 (6-35) U/L Alkaline Phosphatase 110 (38-126) U/L Total Protein 9.1 H (6.3-8.2) g/dL Albumin 4.9 (3.5-5.1) g/dL Lipase 93 (23-300) U/L Urine Color Yellow (Yellow) Urine Appearance Clear (Clear) Urine pH 6.5 (5.0-9.0) Ur Specific [place] 1.017 (1.001-1.035) Urine Protein Trace (Negative) mg/dL Urine Glucose (UA) Negative (Negative) mg/dL Urine Ketones Negative (Negative) mg/dL Ur Blood (Man) Negative (Negative) Urine Nitrate Negative (Negative) Urine Bilirubin Negative (Negative) Urine Urobilinogen 0.2 (<2.0) mg/dL Leukocyte Esterase Rfl Negative (Negative) LEATHA/UL Urine RBC 0-2 (0-2) /hpf Urine WBC 0-5 (0-3) /hpf Ur Squamous Epith Cells Occasional (Few) /hpf Urine Bacteria None seen /hpf Urine Casts 0-2 <Osmar Loredo MD - Last Filed: 03/11/25 06:43> Imaging Data Attestation: I personally reviewed and interpreted this imaging study as follows: < Jackelin Talavera PA-C - Last Filed: 03/11/25 03:22> Discharge Plan Discharge Clinical Impression: Esophagitis Nausea and vomiting Qualifiers: Vomiting type: unspecified Qualified Code(s): R11.2 - Nausea with vomiting, unspecified <Jackelin Talavera PA-C - Last Filed: 03/11/25 03:22> Patient Disposition: Home <NIEVES Durham Last Filed: 03/11/25 03:22> Condition: Stable <Jackelin Talavera PA-C - Last Filed: 03/11/25 03:22> Instructions: Antibiotic Form, Gastroenteritis (ED), Acute Nausea and Vomiting (ED) <NIEVES Durham Last Filed: 03/11/25 03:22> Additional Instructions: Utilize reglan/zofran as needed for further nausea. Take Protonix daily. We have sent you some sucralfate and Pepcid to help with symptoms. Increase fluid intake. Recommend electrolyte rich fluids, gatorade, pedialyte, body armour. Recommend clear liquids, soft/bland diet until symptoms improve, such as bananas, rice, applesauce, toast. Follow up with your primary care doctor and/or GI for further evaluation. Return to the ED if you experience worsening or severe symptoms, unable to keep down food or drink, severe pain, persistent fevers, worsening blood in vomit, or any other symptoms of concern. <Jackelin Talavera PA-C - Last Filed: 03/11/25 03:22> Patient Language: Citizen Of [place] <Jackelin Talavera PA-C - Last Filed: 03/11/25 03:22> Prescriptions: New pantoprazole [Protonix] 20 mg tablet,delayed release (DR/EC) 20 mg PO HS 28 Days Qty: 28 0RF ondansetron 4 mg tablet,disintegrating 4 mg PO Q8H PRN (Reason: nausea and vomiting) Qty: 15 0RF famotidine [Pepcid] 20 mg tablet 20 mg PO BID Qty: 20 0RF metoclopramide HCl [Reglan] 5 mg tablet 5 mg PO Q8H PRN (Reason: nausea and vomiting) Qty: 10 0RF sucralfate [Carafate] 100 mg/mL suspension 3 g PO BID PRN (Reason: dyspepsia) Qty: 420 0RF No Action gabapentin 100 mg capsule 100 mg PO DAILY methylphenidate HCl [Concerta] 18 mg tablet extended release 24hr 18 mg PO QAM Qty: 30 0RF hydroxychloroquine 200 mg tablet 200 mg PO BID diphenhydramine HCl [Benadryl Allergy] 25 mg Tablet 25 mg PO HS PRN (Reason: Allergy Symptoms) escitalopram oxalate 20 mg tablet 40 mg PO HS Humira(CF) Pen 40 mg/0.4 mL pen injector kit 0.4 mg SUBCUT USEASDIRECTD Rx Instructions: Twice monthly spironolactone 50 mg tablet 50 mg PO BID amoxicillin 875 mg tablet 875 mg PO Q12H Qty: 20 0RF <Jackelin Talavera PA-C - Last Filed: 03/11/25 03:22> Follow-up/Referrals: Pranay Silveira MD [Physician, Gastroenterology] Referral Note: Dominga Taylor APRN [Primary Care Provider, Family Practice] <Jackelin Talavera PA-C - Last Filed: 03/11/25 03:22> Time of Disposition: 06:35 <NIEVES Durham Last Filed: 03/11/25 03:22> 06:35 <Osmar Loredo MD - Last Filed: 03/11/25 06:43>
[2025-03-11 00:56] LABS: Alanine Aminotransferase 27 U/L (6-35); Albumin Level 4.9 g/dL (3.5-5.1); Alkaline Phosphatase 110 U/L (38-126); Anion Gap 11 mmol/L (4-12); Aspartate Amino Transferase 34 U/L (14-36); Bilirubin,Total 0.6 mg/dL (0.2-1.3); Blood Urea Nitrogen 13 mg/dL (7-17); Calcium 10.2 mg/dL (8.4-10.2); Carbon Dioxide 31 mmol/L (22-30); Chloride 99 mmol/L (98-107); Estimated CRCL calculation 85 ml/min; Estimated Glomerular Filt Rate > 60; Glucose 123 mg/dL (65-110); Lipase 93 U/L (23-300); Potassium 4.1 mmol/L (3.4-5.0); Sodium 141 mmol/L (137-145); Total Protein 9.1 g/dL (6.3-8.2)
[2025-03-11 01:01] LABS: Add Urine Microscopic? YES; Appearance Urine Clear (Clear); Glucose Urine UA Negative (Negative); Leukocyte Esterase Ur Negative LEU/UL (Negative); Nitrate Urine Negative (Negative); Non Pathogenic Casts 0-2; Specific Grav Ur 1.017 (1.001-1.035)
[2025-03-11] MEDS: PANTOPRAZOLE SODIUM IV 40 MG VIAL IV PUSH (02:22)
[2025-03-11] MEDS: ONDANSETRON INJ 4 MG/2 ML VIAL IV PUSH (02:22)
[2025-03-11] MEDS: MORPHINE SULFATE (*CRX) 4 MG/ML INJ IV PUSH (02:22)
[2025-03-11] MEDS: LIDOCAINE 2% VISC SOLN 15 ML UDC PO (03:30)
[2025-03-11] MEDS: METOCLOPRAMIDE HCL INJ 10 MG/2 ML VIAL IV PUSH (06:03)
[2025-03-11] MEDS: KETOROLAC 15 MG/ML VIAL (*BKC) (06:05)
== END 2025-03-11 06:55 | disposition home or self-care (01) ==
PROVIDERS: Emergency Provider Physician Assistant; PCP Nurse Practitioner Family
DX: K20.90 Esophagitis, unspecified without bleeding (principal); R11.2 Nausea with vomiting, unspecified; M06.9 Rheumatoid arthritis, unspecified; F41.9 Anxiety disorder, unspecified; Z85.828 Personal history of other malignant neoplasm of skin; Z90.711 Acquired absence of uterus with remaining cervical stump; Z77.22 Contact with and (suspected) exposure to environmental tobacco smoke (acute) (chronic); Z79.899 Other long term (current) drug therapy; Z79.620 Long term (current) use of immunosuppressive biologic
CPT/HCPCS: 36415; 71260; 74177; 80053; 81001; 83605; 83690; 85025; 96361; 96374; 96375; 99284; J1200; J1885; J2270; J2405; J2470; J2765; J7030; Q9967